=== PATIENT | female | born 1945 | race Hispanic/Latino ===

== ENCOUNTER 2019-03-29 06:12 | Observation (INO) | payer MEDICARE ==
[2019-03-26 10:57] LABS: ALANINE AMINOTRANSFERASE 14 IU/L (0-55); ALBUMIN 3.8 g/dL (3.5-5.0); ALBUMIN/GLOBULIN RATIO 1.2 (0.8-2.0); ALKALINE PHOSPHATASE 58 IU/L (40-150); ANION GAP 12.2 mmol/L (8-16); BLOOD UREA NITROGEN 11 mg/dL (7-26); BUN/CREATININE RATIO 16 (6-25); CALCIUM 9.4 mg/dL (8.4-10.2); CARBON DIOXIDE 27 mmol/L (22-29); CHLORIDE 106 mmol/L (98-107); EST GLOMERULAR FILTRATION RATE > 60 ML/MIN (60-); GLUCOSE 127 mg/dL (74-118); POTASSIUM 4.2 mmol/L (3.5-5.1); SODIUM 141 mmol/L (136-145)
[2019-03-26 11:32] LABS: BASOPHILS % 0.5 % (0.0-1.0); EOSINOPHILS # (AUTO) 0.2 (0.0-0.4); EOSINOPHILS % 3.4 % (0.0-6.0); HEMATOCRIT 33.4 % (34.2-44.1); LYMPHOCYTES # (AUTO) 1.9 (1.0-3.2); LYMPHOCYTES % 28.8 % (18.0-39.1); MEAN CORPUSCULAR HEMOGLOBIN 29.1 pg (28-32); MEAN CORPUSCULAR HGB CONC 32.9 g/dL (31-35); MEAN CORPUSCULAR VOLUME 88.4 fL (81-99); MONOCYTES # (AUTO) 0.4 (0.2-0.8); MONOCYTES % 6.4 % (4.4-11.3); NEUTROPHILS % 60.7 % (38.7-80.0); PLATELET COUNT 155 x10e3/uL (140-360); RED BLOOD COUNT 3.78 x10e6/uL (3.6-5.1); RED CELL DISTRIBUTION WIDTH 13.2 % (11.7-14.4)
--- NOTE | 2019-03-26 12:16 | Diagnostic Imaging Report ---
EXAMINATION: PA and lateral views of the chest. COMPARISON: None CLINICAL HISTORY: Preoperative evaluation, breast mass DISCUSSION: Lines/tubes: None. Lungs: The lungs are well inflated and clear. No pneumonia or pulmonary edema. Pleura: No pleural effusion or pneumothorax. Heart and mediastinum: The cardiomediastinal silhouette is normal. Bones and soft tissues: No acute bony abnormalities. IMPRESSION: No acute cardiopulmonary abnormalities. Signed by: Dr. Memo Lanier M.D. on 03/26/2019 12:12 PM
[~2019-03-29] VITALS: Ht 147.3 cm; Wt 60.3 kg
[~2019-03-29 06:12] MED LIST: ASPIR 8181 MG PO; ATORVASTATIN CA20 MG PO; GLIPIZIDE5 MG PO; INSUL; INSULIN SC; LISINOPRIL2.5 MG PO; METFORMIN HCL500 MG PO
--- OUTSIDE RECORDS SUMMARY | 2019-03-29 06:21 | XMS REPORT | Clinical Summary ---
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 Active nitroglycerin (NITROSTAT) Place 1 100 tablet 1 0.4 MG SL tablet tablet (0.4 6 mg total) under the tongue every 5 (five) minutes as needed (as needed). Active clopidogrel (PLAVIX) 75 Take 1 tablet 90 tablet 3 mg tablet (75 mg total) 6 by mouth daily. Active atorvastatin (LIPITOR) 20 Take 1 0 MG tablet tablet(s) every day by oral route. Active insulin NPH and regular Inject by 0 human (NovoLIN 70/30) 100 subcutaneous unit/mL (70-30) injection route. 15 units with breakfast and 10 units with dinner Active metFORMIN (GLUCOPHAGE) TAKE ONE 0 1,000 mg tablet TABLET BY MOUTH TWICE DAILY Active metoprolol tartrate Take 1 0 (LOPRESSOR) 25 mg tablet tablet(s) twice a day by oral route. Active metoprolol tartrate Take 1 0 (LOPRESSOR) 50 mg tablet tablet(s) twice a day by oral route for 90 days. Active mometasone (ELOCON) 0.1 % mometasone 0 cream 0.1 % topical cream Active simvastatin (ZOCOR) 20 MG simvastatin 0 tablet 20 mg tablet Active traMADol (ULTRAM) 50 mg tramadol 50 0 tablet mg tablet Active lisinopril Take 1 0 (PRINIVIL,ZESTRIL) 5 mg tablet(s) tablet every day by oral route for 90 days. Active atorvastatin (LIPITOR) 40 TAKE 1 TABLET 1 08/27/201 MG tablet BY MOUTH 6 DAILY FOR HIGH CHOLESTEROL Active aspirin (ECOTRIN) 81 MG Take 81 mg by 0 enteric coated tablet mouth daily. Active Problems Problem Noted Date Diabetes mellitus 10/06/2016 HLD (hyperlipidemia) 10/06/2016 Adrenal mass 08/24/2016 Hypertension 08/24/2016 Atherosclerosis of coronary artery 08/24/2016 Family History Medical History Relation Name Comments Diabetes Brother Diabetes Mother Diabetes Sister Relation Name Status Comments Brother Mother Sister Social History Date Tobacco Use Types Packs/Day Years Used Quit: 1998 Former Smoker Smokeless Tobacco: Never Used Alcohol Use Drinks/Week oz/Week Comments No Sex Assigned at Date Recorded Not on file Industry Job Start Date Occupation Not on file Not on file Not on file Travel End Travel History Travel Start No recent travel history available. Last Filed Vital Signs Not on file Plan of Treatment Health Maintenance Due Date Last Done Comments DIABETIC RETINAL EYE EXAM 1947 DIABETIC FOOT EXAM 1957 URINE MICROALBUMIN 1957 COLONOSCOPY SCREENING 1997 SHINGLES VACCINES (#1) 1997 65+ PNEUMOCOCCAL VACCINE 2012 (1 of 2 - PCV13) BREAST CANCER SCREENING 11/10/2016 11/10/2014 INFLUENZA VACCINE 05/10/2019 Results Not on fileafter 03/28/2018 Insurance Type Payer Benefit Subscriber ID Effective Phone Address Plan / Dates Group Medicare MEDICARE MEDICARE xxxxxxxxxx 2012-P NARINDER, PART A AND resent [place] B Commercial COMMERCIAL MISC MISC xxxxxxxxxx 2016-P COMMERCIAL resent Advance Directives Patient has advance care planning documents on file. For more information, suha jeffrey contact: Narinder Espinoza [address] [place] [address]
--- OUTSIDE RECORDS SUMMARY | 2019-03-29 06:22 | XMS REPORT | Summary of Care ---
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) S/P PTCA Active (percutaneous transluminal coronary angioplasty)(Confirm ed) Type 2 diabetes Active mellitus with hyperglycemia(Confir med) Right adrenal Resolved mass(Confirmed) Medicare annual Active wellness visit, subsequent(Confirmed ) Microalbuminuria(Con Active firmed) Mixed Active hyperlipidemia(Confi rmed) Numbness of right Active thumb(Confirmed) Osteoporosis(Confirm Active ed) Pain of right Active thumb(Confirmed) Screening for Active diabetic retinopathy(Confirme d) 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 Originally documented as NKA. Medications glipiZIDE 5 mg oral tablet =1 tab, PO, BID-Meals, # 180 ea, Pharmacy: [facility] Start Date: 11/26/18 Status: Ordered Results No data available for this section Immunizations Given and Recorded Vaccine Date Status Refusal Reason pneumococcal 23-valent vaccine1 06/15/12 Given 1Result Comment: pneumovax. Migrated from OBS ; Data migrated from [employer] on 11/11/2015. Procedures Procedure Date Related Diagnosis Body Site Status PTCA - Percutaneous transluminal coronary 2014 Completed angioplasty Screening mammography 2014 Completed Pneumococcal vaccination1 06/15/12 Completed Cholecystectomy 1967 Completed 1Pneumovax Social History Social History Type Response Substance Abuse Use: None. Exercise Exercise type: none. Employment/School Status: Retired. Alcohol Past Smoking Status Former smoker; Exposure to Tobacco Smoke None; Cigarette Smoking Last 365 Days No; Reg Smoking Cessation Counseling No entered on: 06/19/18 Assessment and Plan No data available for this section
--- OUTSIDE RECORDS SUMMARY | 2019-03-29 06:22 | XMS REPORT | Summary of Care ---
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) S/P PTCA Active (percutaneous transluminal coronary angioplasty)(Confirm ed) Type 2 diabetes Active mellitus with hyperglycemia(Confir med) Right adrenal Active mass(Confirmed) Microalbuminuria(Con Active firmed) Mixed Active hyperlipidemia(Confi rmed) Numbness of right Active thumb(Confirmed) Osteoporosis(Confirm Active ed) Pain of right Active thumb(Confirmed) Screening for colon Active cancer(Confirmed) Screening for Active diabetic retinopathy(Confirme d) 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 Originally documented as NKA. Medications metFORMIN 1000 mg oral tablet 1,000 mg=1 tab, PO, BID, # 180 tab, 1 Refill(s) Start Date: 09/12/17 Stop Date: 03/11/18 Status: Ordered NovoLIN 70/30 PenFill subcutaneous injection 20 units with breakfast and 15 units with dinner, SUB-Q, BID, # 10 mL, 5 Refill( s) Start Date: 09/12/17 Status: Ordered Results No data available for this section Immunizations Given and Recorded Vaccine Date Status Refusal Reason pneumococcal 23-valent vaccine1 06/15/12 Given 1Result Comment: pneumovax. Migrated from OBS ; Data migrated from [employer] on 11/11/2015. Procedures Procedure Date Related Diagnosis Body Site PTCA - Percutaneous transluminal coronary 2014 angioplasty Screening mammography 2014 Cholecystectomy 1967 Social History Social History Type Response Substance Abuse Use: None. Exercise Exercise type: none. Employment/School Status: Retired. Alcohol Past Smoking Status Former smoker; Type: Cigarettes; Exposure to Tobacco Smoke None; Cigarette Smoking Last 365 Days No; Reg Smoking Cessation Counseling No; Stopped at age: 22; Assessment and Plan No data available for this section
--- OUTSIDE RECORDS SUMMARY | 2019-03-29 06:22 | XMS REPORT | Summary of Care ---
Author Author [facility] Organization [facility] Address Unknown Phone Unavailable Care Team Providers Care Teaching Aide Name Role Phone Anita Cordoba PCP Encounter HQ Encntr_nati(FIN) [id number] Date(s): 03/12/19 - 03/12/19 [facility] [address] [place] [address] [address] [place] [address]- Attending Physician: Anita Cordoba MD Vital Signs No data available for this section Problem List Condition Effective Dates Status Health Status Informant Coronary artery Active disease(Confirmed) Benign essential Active hypertension(Confirm ed) BMI Active 28.0-28.9,adult(Conf irmed) Screening for breast Active cancer(Confirmed) DM Active retinopathy(Confirme d) 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) Active 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(Confirmed) S/P PTCA Active (percutaneous transluminal coronary angioplasty)(Confirm ed) Type 2 diabetes Active mellitus with hyperglycemia(Confir med) 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) Right adrenal Resolved mass(Confirmed) Medicare annual Active wellness visit, subsequent(Confirmed ) Microalbuminuria(Con Active firmed) Mixed Active hyperlipidemia(Confi rmed) Numbness of right Active thumb(Confirmed) Osteoporosis(Confirm Active ed) Overweight(Confirmed Active ) Pain of right Active thumb(Confirmed) Screening for Active diabetic retinopathy(Confirme d) 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 Migrated from [employer] ; Data migrated from [employer] on 11/11/2015. Procedures Procedure Date Related Diagnosis Body Site Status Diabetic retinal eye exam1 02/19/19 Completed Biopsy of breast2 02/15/19 Completed Bone density scan3 01/02/19 Completed Screening mammography4 01/02/19 Completed Diabetic retinal eye exam5 12/04/18 Completed PTCA - Percutaneous transluminal coronary 2014 Completed angioplasty Pneumococcal vaccination6 06/15/12 Completed Cholecystectomy 1967 Completed 1Diabetic retinopathy with macular edema 2Diagnosis Right breast, stereotactic core biopsy 9:00 aspect - DUCTAL CARCINOMA IN SITU, NUCLEAR GRADE 2, CRIBRIFORM AND MICROPAPILLAR Y TYPES WITH COMEDONECROSIS AND CALCIFICATIONS 3IMPRESSION: OSTEOPENIA Patient is at medium risk for fracture. 4IMPRESSION: INCOMPLETE: NEEDS ADDITIONAL IMAGING EVALUATION RECOMMENDATION:The linear heterogeneous calcifications in the right breast are i ndeterminate. Magnification views are recommended. 5Right Eye Findings: Negative for Diabetic Retinopathy. Other: Suspected Cataract Left Eye Findings: Diabetic Retinopathy: Mild Macular Edema: Mild Other: Suspected Cataract 6Pneumovax Social History Social History Type Response Substance Abuse Use: None. Exercise Exercise type: none. Employment/School Status: Retired. Alcohol Past Smoking Status Former smoker; Type: Cigarettes; Exposure to Tobacco Smoke None; Cigarette Smoking Last 365 Days No; Reg Smoking Cessation Counseling No; Stopped at age: 22; entered on: 02/20/19 Assessment and Plan No data available for this section
--- OUTSIDE RECORDS SUMMARY | 2019-03-29 06:22 | XMS REPORT | Summary of Care ---
Author Author [facility] Organization [facility] Address Unknown Phone Unavailable Encounter HQ Arie(FIN) [id number] Date(s): 06/19/18 - 06/19/18 [facility] [address] [place] [address]- Discharge Disposition: Home or Self Care Attending Physician: Anita Cordoba MD Vital Signs Most recent to 1 2 oldest [Reference Range]: Height 147.32 cm (06/19/18 2:39 PM) Temperature Oral 97.8 DegF [96.4-99.1 DegF] (06/19/18 2:39 PM) Blood Pressure 140/72 mmHg 173/85 mmHg [90-140/60-90 mmHg] (06/19/18 3:01 PM) *HI* (06/19/18 2:39 PM) Peripheral Pulse 87 bpm Rate [60-100 bpm] (06/19/18 2:39 PM) Weight 62.5 kg (06/19/18 2:39 PM) Body Mass Index 28.8 m2 (06/19/18 2:39 PM) Problem List Condition Effective Dates Status Health Status Informant Coronary artery Active disease(Confirmed) Benign essential Active hypertension(Confirm ed) BMI Active 28.0-28.9,adult(Conf irmed) Screening for breast Active cancer(Confirmed) DM Active retinopathy(Confirme d) 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 Originally documented as NKA. Medications atorvastatin 20 mg oral tablet 20 mg=1 tab, PO, Bedtime, X 90 day, # 90 tab, 1 Refill(s) Start Date: 06/19/18 Stop Date: 11/29/18 Status: Completed glipiZIDE 5 mg oral tablet 5 mg=1 tab, PO, BID-Before Meals, # 180 tab, 1 Refill(s) Start Date: 06/19/18 Stop Date: 11/26/18 Status: Completed lisinopril 2.5 mg oral tablet 2.5 mg=1 tab, PO, Daily, # 90 tab, 1 Refill(s) Start Date: 06/19/18 Stop Date: 09/12/18 Status: Completed metFORMIN 1000 mg oral tablet 1,000 mg=1 tab, PO, BID, X 90 day, # 180 tab, 1 Refill(s) Start Date: 06/19/18 Stop Date: 11/29/18 Status: Completed NovoLIN 70/30 20 units with breakfast and 15 units with dinner, SUB-Q, BID-Meals, # 3 vial, 3 Refill(s) Start Date: 06/19/18 Stop Date: 11/29/18 Status: Completed Results No data available for this section Immunizations Given and Recorded Vaccine Date Status Refusal Reason pneumococcal 23-valent vaccine1 06/15/12 Given 1Result Comment: pneumovax. Migrated from [facility] ; Data migrated from Search to Phone on 11/11/2015. Procedures Procedure Date Related Diagnosis Body Site Status Bone density scan1 01/02/19 Completed Screening mammography2 01/02/19 Completed Diabetic retinal eye exam3 12/04/18 Completed PTCA - Percutaneous transluminal coronary 2014 Completed angioplasty Pneumococcal vaccination4 06/15/12 Completed Cholecystectomy 1967 Completed 1IMPRESSION: OSTEOPENIA Patient is at medium risk for fracture. 2IMPRESSION: INCOMPLETE: NEEDS ADDITIONAL IMAGING EVALUATION RECOMMENDATION:The linear heterogeneous calcifications in the right breast are i ndeterminate. Magnification views are recommended. 3Right Eye Findings: Negative for Diabetic Retinopathy. Other: Suspected Cataract Left Eye Findings: Diabetic Retinopathy: Mild Macular Edema: Mild Other: Suspected Cataract 4Pneumovax Social History Social History Type Response Substance Abuse Use: None. Exercise Exercise type: none. Employment/School Status: Retired. Alcohol Past Smoking Status Former smoker; Type: Cigarettes; Exposure to Tobacco Smoke None; Cigarette Smoking Last 365 Days No; Reg Smoking Cessation Counseling No; Stopped at age: 22; entered on: 12/04/18 Assessment and Plan No data available for this section
--- OUTSIDE RECORDS SUMMARY | 2019-03-29 06:22 | XMS REPORT | Summary of Care ---
Author Author [facility] Organization [facility] Address Unknown Phone Unavailable Encounter HQ Danelle_nati(FIN) [id number] Date(s): 01/03/19 - 01/04/19 [facility] [address] [place] [address]- [phone] Vital Signs No data available for this section Problem List Condition Effective Dates Status Health Status Informant Coronary artery Active disease(Confirmed) Benign essential Active hypertension(Confirm ed) BMI Active 28.0-28.9,adult(Conf irmed) Screening for breast Active cancer(Confirmed) DM Active retinopathy(Confirme d) 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 Originally documented as NKA. Medications No data available for this section Results No data available for this section Immunizations Given and Recorded Vaccine Date Status Refusal Reason pneumococcal 23-valent vaccine1 06/15/12 Given 1Result Comment: pneumovax. Migrated from OBS ; Data migrated from [employer] on 11/11/2015. Procedures Procedure Date Related Diagnosis Body Site Status Bone density scan1 01/02/19 Completed Screening mammography2 01/02/19 Completed Diabetic retinal eye exam3 12/04/18 Completed PTCA - Percutaneous transluminal coronary 2015 Completed angioplasty Pneumococcal vaccination4 06/15/12 Completed Cholecystectomy [...]
--- OUTSIDE RECORDS SUMMARY | 2019-03-29 06:22 | XMS REPORT | Summary of Care ---
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 Originally documented as NKA. Medications NovoLIN 70/30 20 units with breakfast and 15 units with dinner, SUB-Q, BID-Meals, # 3 vial, 3 Refill(s) Start Date: 09/23/17 Status: Ordered Results No data available for this section Immunizations Given and Recorded Vaccine Date Status Refusal Reason pneumococcal 23-valent vaccine1 06/15/12 Given 1Result Comment: pneumovax. Migrated from OBS ; Data migrated from [employer] on 11/11/2015. Procedures Procedure Date Related Diagnosis Body Site PTCA - Percutaneous transluminal coronary 2015 angioplasty Screening mammography 2015 Cholecystectomy 1967 Social History Social History Type Response Substance Abuse Use: None. Exercise Exercise type: none. Employment/School Status: Retired. Alcohol Past Smoking Status Former smoker; Type: Cigarettes; Exposure to Tobacco Smoke None; Cigarette Smoking Last 365 Days No; Reg Smoking Cessation Counseling No; Stopped at age: 22; Assessment and Plan No data available for this section
--- OUTSIDE RECORDS SUMMARY | 2019-03-29 06:22 | XMS REPORT | Summary of Care ---
Author Author [facility] Organization [facility] Address Unknown Phone Unavailable Encounter COURTNEY Sargent(AYO) [id number] Date(s): 01/02/19 - 01/02/19 [facility] [address] [place] [phone] Discharge Disposition: Home or Self Care Attending Physician: Anita Cordoba MD Referring Physician: Anita Cordoba MD Vital Signs No data available for this section Problem List Condition Effective Dates Status Health Status Informant Coronary artery Active disease(Confirmed) Benign essential Active hypertension(Confirm ed) BMI Active 28.0-28.9,adult(Conf irmed) Screening for breast Active cancer(Confirmed) DM Active retinopathy(Confirme d) 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 Originally documented as NKA. Medications No data available for this section Results No data available for this section Immunizations Given and Recorded Vaccine Date Status Refusal Reason pneumococcal 23-valent vaccine1 06/15/12 Given 1Result Comment: pneumovax. Migrated from OBS ; Data migrated from [employer] on 11/11/2015. Procedures Procedure Date Related Diagnosis [...]
--- OUTSIDE RECORDS SUMMARY | 2019-03-29 06:22 | XMS REPORT | Continuity of Care Document ---
Author Author [facility] Interface Address Unknown Phone Unavailable Problems Problem Status Onset Date Classification Date Reported Comments Source ABNORMAL MAMMOGRAM OF RIGHT BREAST Active 01/30/2019 [facility] Z12.13 - ENCNTR SCREEN FOR MALIGNANT NE Active 12/08/2018 [facility] [place] Z12.31 - ENCNTR SCREEN MAMMOGRAM FOR MA Active 03/15/2017 [facility] [place] Coronary artery disease Active Problem 03/28/2019 [facility], [facility] [place],[facility] Benign essential hypertension Active Problem 03/28/2019 [facility], [facility] [place] Screening for breast cancer Active Problem 03/28/2019 [facility], [facility] [place] prison 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(<span ID="[id number]</span>) Active Problem 03/28/2019 [facility], [facility] [place],[facility] S/P PTCA (<span ID="[id number]">Confirmed</span>) Active Problem 03/28/2019 [facility], [facility] [place] Type 2 diabetes mellitus with hyperglycemia Active Problem 03/28/2019 [facility], [facility] [place] Right adrenal mass Resolved Problem 03/28/2019 [facility], [facility] [place] Medicare annual wellness visit, subsequent Active Problem 03/28/2019 [facility], [facility] [place] Microalbuminuria Active Problem 03/28/2019 [facility], [facility] [place] Mixed hyperlipidemia Active Problem 03/28/2019 [facility], [facility] [place], [facility] Numbness of right thumb Active Problem 03/28/2019 [facility], [facility] [place] Osteoporosis Active Problem 03/28/2019 [facility], [facility] [place], [place] Pain of right thumb Active Problem 03/28/2019 [facility], [facility] [place] Screening for colon cancer Active Problem 02/15/2018 Medical [facility] Screening for diabetic retinopathy Active Problem 03/28/2019 [facility] [place] Type 2 diabetes mellitus with microalbuminuria Active Problem 03/28/2019 [facility] BMI 28.0-28.9,adult Active Problem 03/28/2019 [facility], [facility] DM retinopathy Active Problem 03/28/2019 [facility] Overweight Active Problem 03/28/2019 Medical [facility] Ductal carcinoma in situ of right breast Active Problem 03/28/2019 Medical [facility] Abnormal mammogram of right breast Active Problem 02/17/2019 Medical [facility] Medications Medication Details Route Status Patient Instructions Ordering Provider Order Date Source Metformin hydrochloride 1000 MG Oral Tablet 1,000 mg=1 tab, PO, BID, # 180 tab, 1 Refill(s), Pharmacy: [facility] Active 11/29/2018 [facility] Group lisinopril 2.5 mg oral tablet =1 tab, PO, Daily, # 90 ea, 1 Refill(s), Pharmacy: [facility] Active 11/29/2018 Medical Group NPH Insulin, Human 70 UNT/ML / Regular Insulin, Human 30 UNT/ML Injectable Suspension [Novolin 70/30] 20 units with breakfast and 15 units with dinner, SUB-Q, BID-Meals, # 3 vial, 3 Refill(s), Pharmacy: [facility] Active 11/29/2018 [facility] Group atorvastatin 20 mg oral tablet 20 mg=1 tab, PO, Bedtime, # 90 tab, 1 Refill(s), Pharmacy: [facility] Active 11/29/2018 Medical Group Glipizide 5 MG Oral Tablet =1 tab, PO, BID-Meals, # 180 ea, Pharmacy: [facility] Active 11/26/2018 Medical Group Metformin hydrochloride 1000 MG Oral Tablet 1,000 mg=1 tab, PO, BID, X 90 day, # 180 tab, 1 Refill(s) No Longer Active 06/19/2018 Medical Group lisinopril 2.5 mg oral tablet 2.5 mg=1 tab, PO, Daily, # 90 tab, 1 Refill(s) No Longer Active 06/19/2018 [facility] NPH Insulin, Human 70 UNT/ML / Regular Insulin, Human 30 UNT/ML Injectable Suspension [Novolin 70/30] 20 units with breakfast and 15 units with dinner, SUB-Q, BID-Meals, # 3 vial, 3 Refill(s) No Longer Active 06/19/2018 [facility] Glipizide 5 MG Oral Tablet 5 mg=1 tab, PO, BID-Before Meals, # 180 tab, 1 Refill(s) No Longer Active 06/19/2018 [facility] atorvastatin 20 mg oral tablet 20 mg=1 tab, PO, Bedtime, X 90 day, # 90 tab, 1 Refill(s) No Longer Active 06/19/2018 [facility] lisinopril 2.5 mg oral tablet 2.5 mg=1 tab, PO, Daily, # 90 tab, 1 Refill(s), given to patient Active 02/06/2018 [facility] Glipizide 5 MG Oral Tablet 5 mg=1 tab, PO, BID-Before Meals, # 180 tab, 1 Refill(s), given to patient Active 02/06/2018 Medical Group atorvastatin 20 mg oral tablet 20 mg=1 tab, PO, Bedtime, # 90 tab, 1 Refill(s), given to patient Active 02/06/2018 [facility] Metformin hydrochloride 1000 MG Oral Tablet 1,000 mg=1 tab, PO, BID, # 180 tab, 1 Refill(s), given to patient Active 02/06/2018 Medical Group Metformin hydrochloride 1000 MG Oral Tablet 1,000 mg=1 tab, PO, BID, # 180 tab, 1 Refill(s) No Longer Active 12/15/2017 [facility] lisinopril 2.5 mg oral tablet 2.5 mg=1 tab, PO, Daily, # 90 tab, 1 Refill(s) Active 10/27/2017 [facility] Glipizide 5 MG Oral Tablet 5 mg=1 tab, PO, BID-Before Meals, # 180 tab, 1 Refill(s) Active 10/27/2017 Medical Group NPH Insulin, Human 70 UNT/ML / Regular Insulin, Human 30 UNT/ML Injectable Suspension [Novolin 70/30] 20 units with breakfast and 15 units with dinner, SUB-Q, BID-Meals, # 3 vial, 3 Refill(s) Active 10/24/2017 [facility] atorvastatin 20 mg oral tablet 20 mg=1 tab, PO, Bedtime, # 90 tab, 1 Refill(s) Active 10/24/2017 [facility] NPH Insulin, Human 70 UNT/ML / Regular Insulin, Human 30 UNT/ML Injectable Suspension [Novolin 70/30] 20 units with breakfast and 15 units with dinner, SUB-Q, BID-Meals, # 3 vial, 3 Refill(s) Active 09/23/2017 [facility] NovoLIN 70/30 PenFill subcutaneous injection 20 units with breakfast and 15 units with dinner, SUB-Q, BID, # 10 mL, 5 Refill(s) Active 09/12/2017 [facility] Metformin hydrochloride 1000 MG Oral Tablet 1,000 mg=1 tab, PO, BID, # 180 tab, 1 Refill(s) Active 09/12/2017 [facility] Metformin hydrochloride 1000 MG Oral Tablet 1,000 mg=1 tab, PO, BID, X 90 day, # 180 tab, 1 Refill(s), Pharmacy: [id number] No Longer Active 09/12/2017 [facility] Allergies, Adverse Reactions, Alerts Substance Category Reaction Severity Reaction type Status Date Reported Comments Source No Known Medication Allergies Assertion Drug allergy [facility] Immunizations Immunization Date Given Site Status Last Updated Comments Source pneumococcal 23-valent vaccine<sup>1</sup> 06/15/2012 completed GE Result Comment: pneumovax. Migrated from OBS ; Data migrated from [employer] on 11/11/2015. [facility] Results Order Name Results Value Reference Range Date Interpretation Comments Source Stereo Breast BX Uni /Clip Primary SD MA Stereo Breast BX Uni /Clip Primary SD MA STEREOTACTIC GUIDED BIOPSY RIGHT BREAST WITH MARKING DEVICE INSERTED AND POST DIGITAL MAMMOGRAPHIC IMAGIN02/15/2019 CLINICAL: Indeterminate right breast calcifications. PATIENT CONSENT: Oral and written informed consent was obtained. Risks, benefits, and alternatives were discussed with the patient. Risks include but are not limited to pain, infection, bleeding, incomplete procedure, repeat procedure, pneumothorax, damage to surrounding tissues, and allergic reaction. The patient understands the plan and wishes to proceed. A time out was performed immediately prior to the procedure to confirm the patient's identity (name/date of ) and correct procedure site. Correlation is made to exams dated: 01/11/2019 mammogram, 01/02/2019 mammogram - [facility], 11/18/2014 mammogram, 01/17/2013 mammogram - [facility], 07/09/2011 mammogram - [facility], and 03/05/2009 mammogram - [facility]. A stereotactic guided biopsy was performed for the concerning area of grouped calcifications located in the right breast at 9 o'clock posterior depth. This was described on the previous mammography report. The skin was prepped in the usual manner. 10 ccs of 2% lidocaine was administered during the procedure. A skin silvia was made in the breast. The abnormality was approached from the lateral aspect using an upright digital mammography unit. A 9 gauge biopsy needle was placed adjacent to the abnormality under computer guidance and confirmatory stereotactic mammography images were obtained to document needle placement. Once the needle was documented to be in the correct location, multiple cores were obtained using an automated biopsy gun. A [employer] ramon shaped biopsy clip was inserted into the biopsy cavity. A skin adhesive and a sterile dressing were applied to the access site. Post procedure digital mammographic imaging interpreted on a dedicated mammography workstation demonstr ates the clip at the targeted area and partial removal of the calcifications. The specimens were sent to the laboratory for pathological analysis. IMPRESSION: STEREOTACTIC GUIDED BIOPSY MALIGNANT Stereotactic guided biopsy of the area of grouped calcifications in the right breast at 9 o'clock posterior depth was successful with no apparent post procedure complications. Pathology indicates malignant results - "DUCTAL CARCINOMA IN SITU, NUCLEAR GRADE 2, CRIBRIFORM AND MICROPAPILLARY TYPES WITH COMEDONECROSIS AND CALCIFICATIONS". Pathology results are concordant with imaging findings. A surgical consultation, a surgical excision, a radiation oncology consultation, and a medical oncology consultation are recommended. Please note, the calcifications are loosely grouped and measure approximately 4-5 cm. A phone call was made to the physician of the above results at 1340 hrs 02/16/19. This exam was interpreted at [id number] for [facility]. Darby nevarez/:02/16/2019 13:43:40 Electronics Engineering Technologist(s): Dianne Bone, [facility] 02/15/2019 - - Read by: Darby Smith MD Dictated Date/time: 02/16/19 13:43 Electronically Signed by: Darby Smith MD 02/16/19 13:43 FINAL REPORT [facility] Breast Mammo Diag UNI incl CAD RI Breast Mammo Diag UNI incl CAD MA UNILATERAL RIGHT DIGITAL DIAGNOSTIC MAMMOGRAM WITH CAD: 01/11/2019 CLINICAL: R92.8/ Other Abnormal And Inconclusive Findings On Diagnostic Imaging Of Breast. Current study was evaluated with a Computer Aided Detection (CAD) system. COMPARISON:Comparison is made to exams dated: 01/02/2019 mammogram - [facility] and 11/18/2014 mammogram - [facility]. TECHNIQUE: Mammographic views were obtained using digital acquisition. Current study was also evaluated with a Computer Aided Detection (CAD) system. FINDINGS: There are scattered fibroglandular densities in right breast. There are 4.4 cm x 3.9 cm x 3.1 cm segmental heterogeneous calcifications in the right breast at 11 o'clock posterior depth 4.5 cm from the nipple. No other significant masses or calcifications are seen in the breast. IMPRESSION: SUSPICIOUS OF MALIGNANCY RECOMMENDATION:The 4.4 cm x 3.9 cm x 3.1 cm segmental heterogeneous calcifications in the right breast are at an intermediate suspicion for malignancy. A stereotactic biopsy is recommended. This exam was interpreted at [id number] for IGNACIO Justice 15. Professional services are provided by the [facility] M[facility] Division of Diagnostic Imaging. Best Tello M.D. cm/penrad:01/11/2019 14:16:53 Electronics Engineering Technologist(s): RT Roman(R)(M), [facility] letter sent: BI-RADS 4/5 Mammogram BI-RADS: 4b Suspicious abnormality - intermediate suspicion of malignancy 01/11/2019 - - Read by: Christophe Arana MD Dictated Date/time: 01/11/19 14:16 Electronically Signed by: Christophe Arana MD 01/11/19 14:16 FINAL REPORT [facility] Breast Mammo Scrn KESHAWN incl CAD MA Breast Mammo Scrn KESHAWN incl CAD MA BILATERAL DIGITAL SCREENING MAMMOGRAM WITH CAD: 01/02/2019 Current study was evaluated with a Computer Aided Detection (CAD) system. COMPARISON:Comparison is made to exams dated: 11/18/2014 mammogram, 01/17/2013 mammogram - [facility], 07/09/2011 mammogram - [facility], and 03/05/2009 mammogram - [facility]. TECHNIQUE: Mammographic views were obtained using digital acquisition. Current study was also evaluated with a Computer Aided Detection (CAD) system. FINDINGS: There are scattered fibroglandular densities in both breasts. There are linear heterogeneous calcifications in the right breast at 11 o'clock posterior depth 7.5 cm from the nipple. No other significant masses, calcifications, or other findings are seen in either breast. IMPRESSION: INCOMPLETE: NEEDS ADDITIONAL IMAGING EVALUATION RECOMMENDATION:The linear heterogeneous calcifications in the right breast are indeterminate. Magnification views are recommended. This exam was interpreted at [id number] for IGNACIO Rasmussen 15. Professional services are provided by the [facility] Division of Diagnostic Imaging. Best Tello M.D. cm/penrad:01/02/2019 11:03:20 Electronics Engineering Technologist(s): RT Jenae(R)(M), [facility] letter sent: BI-RADS 0 Mammogram BI-RADS: 0 Indeterminate 01/02/2019 - - Read by: Christophe Arana MD Dictated Date/time: 01/02/19 11:03 Electronically Signed by: Christophe Arana MD 01/02/19 11:03 FINAL REPORT [facility] Bone Density [employer] MA Bone Density [employer] MA BONE DENSITY ASSESSMENT: 01/02/2019 CLINICAL DATA: Post menopausal. Age-Related Osteoporosis Without Current Pathological Fracture/M81.0 FINDINGS: Bone density evaluation was performed 01/02/2019 on the right femur neck using a Hologic unit. The BMD average for the exam is 0.750 g/cm2. The T-score is -0.90 and the Z-score is 0.80. This matches the World Health Organization's criteria for normal bone density and places the patient within normal limits of fracture risk. An additional bone density evaluation was performed 01/02/2019 on the left femur neck using a Hologic unit. The BMD average for the exam is 0.714 g/cm2. The T- score is -1.20 and the Z-score is 0.50. This matches the World Health Organization's criteria for osteopenia and places the patient at a medium risk for fracture. An additional bone density evaluation was performed 01/02/2019 on the right hip using a Hologic unit. The BMD average for the exam is 0.938 g/cm2. The Z-score is 1.40. This matches the World Health Organization's criteria for normal bone density and places the patient within normal limits of fracture risk. An additional bone density evaluation was performed 01/02/2019 on the left hip using a Hologic unit. The BMD average for the exam is 0.976 g/cm2. The T-score is 0.30 and the Z-score is 1.70. This matches the World Health Organization's criteria for normal bone density and places the patient within normal limits of fracture risk. An additional bone density evaluation was performed 01/02/2019 on the AP L3-L4 region of spine using a Hologic unit. The BMD average for the exam is 1.260 g/cm2. The T-score is 1.40 and the Z-score is 3.80. This matches the World Health Organization's criteria for normal bone density and places the patient within normal limits of fracture risk. FRAX 10 year probability of major osteoporotic fracture is 5.1% and hip fracture is 0.6%. IMPRESSION: OSTEOPENIA Patient is at medium risk for fracture. This exam was interpreted at [id number] for IGNACIO Rasmussen 15. Best Tello M.D. cm/gabriele:01/02/2019 11:01:03 Electronics Engineering Technologist(s): Nemo SNOW(Tabby)(M), [facility] 01/02/2019 - - Read by: Christophe Arana MD Dictated Date/time: 01/02/19 11:01 Electronically Signed by: Christophe Arana MD 01/02/19 11:01 FINAL REPORT [facility] Vital Signs Vital Sign Value Date Comments Source Heart Rate 82 02/20/2019 Medical Group Respitory Rate 16 02/20/2019 Medical Group Temperature Oral (F) 98.7 F 02/20/2019 [facility] Group Systolic (mm Hg) 173 02/20/2019 Medical Group Diastolic (mm Hg) 86 02/20/2019 Medical Group BMI Calculated 28.98 02/20/2019 Medical Group Height 147.32 cm 02/20/2019 Medical Group Weight 62.898 02/20/2019 Medical Group Height 147.32 cm 12/04/2018 [facility] Group Weight 61.818 12/04/2018 Medical Group BMI Calculated 28.48 12/04/2018 Medical Group Heart Rate 92 12/04/2018 Medical Group Respitory Rate 16 12/04/2018 [facility] Temperature Oral (F) 98.1 F 12/04/2018 [facility] Systolic (mm Hg) 153 12/04/2018 [facility] Group Diastolic (mm Hg) 83 12/04/2018 [facility] Systolic (mm Hg) 140 06/19/2018 [facility] Group Diastolic (mm Hg) 72 06/19/2018 Medical Group BMI Calculated 28.8 06/19/2018 Medical Group Weight 62.5 06/19/2018 Medical Group Height 147.32 cm 06/19/2018 Medical Group Heart Rate 87 06/19/2018 [facility] Group Temperature Oral (F) 97.8 F 06/19/2018 [facility] Group Systolic (mm Hg) 173 06/19/2018 Medical Group Diastolic (mm Hg) 85 06/19/2018 Medical Group Weight 63.352 02/06/2018 Medical Group BMI Calculated 29.19 02/06/2018 [facility] Group Systolic (mm Hg) 143 02/06/2018 [facility] Group Diastolic (mm Hg) 71 02/06/2018 Medical Group Temperature Oral (F) 98.7 F 02/06/2018 Medical Group Heart Rate 87 02/06/2018 Medical Group Respitory Rate 16 02/06/2018 Medical Group Height 147.32 cm 02/06/2018 Medical Group Weight 63.182 10/24/2017 Medical Group Height 147.32 cm 10/24/2017 Medical Group BMI Calculated 29.11 10/24/2017 Medical Group Systolic (mm Hg) 161 10/24/2017 [facility] Group Diastolic (mm Hg) 87 10/24/2017 Medical Group Temperature Oral (F) 98.3 F 10/24/2017 Medical Group Respitory Rate 16 10/24/2017 Medical Group Heart Rate 93 10/24/2017 Medical Group Encounters Location Location Details Encounter Type Encounter Number Reason For Visit Attending Provider ADM Date DC Date Status Source [facility] Outpatient [facility] [id number] Bita Lockett 11/18/2014 11/19/2014 [facility] [place] Out[facility] [id number] BITA LOCKETT 02/21/2017 Active [facility] [id number] BITA GARCIAO 03/21/2017 [facility] [id number] BITA LOCKETT 05/30/2017 Active [facility] [id number] BITA LOCKETT 06/10/2017 Active [facility] [id number] BITA LOCKETT 06/20/2017 Active [facility] [id number] BIT[facility]OCKETT 07/04/2017 [facility] Phone Message [id number] 09/12/2017 09/13/2017 [facility] Phone Message [id number] 09/12/2017 09/14/2017 [facility] Phone Message [id number] 09/21/2017 09/23/2017 [facility] Outpatient [id number] BITA HAQUECEDO 10/17/2017 [facility] Ambulatory Pre-Reg [id number] Bita Haquecedo 10/17/2017 10/17/2017 [facility] Outpatient [id number] BITA HAQUECEDO 10/24/2017 Active [facility] Outpatient [id number] Bita Haquecedo 10/24/2017 10/25/2017 [facility] Phone Message [id number] 02/01/2018 02/03/2018 [facility] Outpatient [id number] BITA HAQUECEDO 02/06/2018 [facility] Outpatient [id number] Bita Haquecedo 02/06/2018 02/07/2018 [facility]patient [id number] BITA HAQUECEDO 06/19/2018 [facility] Outpatient [id number] Bita Haquecedo 06/19/2018 06/20/2018 [facility] Phone Message [id number] 11/26/2018 11/28/2018 [facility] Phone Message [id number] 11/27/2018 11/29/2018 [facility] Phone Message [id number] 11/29/2018 12/01/2018 [facility] Outpatient [id number] BITA LOCKETT 12/04/2018 Active [facility] Outpatient [id number] Bita Lockett 12/04/2018 12/05/2018 [facility] Primary [facility] Phone Message [id number] 12/05/2018 12/07/2018 [facility] [place] [facility] [id number] Bita Lockett 01/02/2019 01/03/2019 [facility] [place] [facility] Phone Message [id number] 01/04/2019 01/05/2019 [facility] [place] [facility] [id number] Bita Lockett 01/11/2019 01/12/2019 [facility] [place] [facility] Phone Message [id number] 01/11/2019 01/13/2019 [facility] Phone Message [id number] 01/16/2019 01/18/[address] [facility] Outpatient [id number] Bita Haquecedo 02/15/2019 02/16/2019 [facility] Phone Message [id number] 02/19/2019 02/20/2019 [facility] Outpatient [id number] Bita Lockett 02/20/2019 Active [facility] Outpatient [id number] Bita Haquecedo 02/20/2019 02/21/2019 [facility] Outpatient [id number] BITA LOCKETT 03/02/2019 Active [facility] Phone Message [id number] 03/07/2019 03/09/2019 [facility] Ambulatory Pre-Reg [id number] Bita Lockett 03/12/2019 03/12/2019 [facility] Phone Message [id number] 03/23/2019 03/25/2019 [facility] Outpatient [id number] Bita Lockett 03/26/2019 Active [facility] Ambulatory Pre-Reg [id number] Bita Lockett 03/26/2019 03/26/2019 [facility] Procedures Procedure Code Date Perfomer Comments Source Diabetic retinal eye exam<sup>1</sup> [id number] 02/19/2019 Diabetic retinopathy with macular edema [facility] Biopsy of breast<sup>2</sup> [id number] 02/15/2019 Diagnosis Right breast, stereotactic core biopsy 9:00 aspect - DUCTAL CARCINOMA IN SITU, NUCLEAR GRADE 2, CRIBRIFORM AND MICROPAPILLARY TYPES WITH COMEDONECROSIS AND CALCIFICATIONS [facility] Biopsy of breast<sup>1</sup> [id number] 02/15/2019 Diagnosis Right breast, stereotactic core biopsy 9:00 aspect - DUCTAL CARCINOMA IN SITU, NUCLEAR GRADE 2, CRIBRIFORM AND MICROPAPILLARY TYPES WITH COMEDONECROSIS AND CALCIFICATIONS [facility] Bone density scan<sup>3</sup> [id number] 01/02/2019 IMPRESSION: OSTEOPENIA Patient is at medium risk for fracture. [facility] Screening mammography<sup>4</sup> [id number] 01/02/2019 IMPRESSION: INCOMPLETE: NEEDS ADDITIONAL IMAGING EVALUATION RECOMMENDATION:The linear heterogeneous calcifications in the right breast are indeterminate. Magnification views are recommended. [facility] Bone density scan<sup>1</sup> [id number] 01/02/2019 IMPRESSION: OSTEOPENIA Patient is at medium risk for fracture. [facility] Screening mammography<sup>2</sup> [id number] 01/02/2019 IMPRESSION: INCOMPLETE: NEEDS ADDITIONAL IMAGING EVALUATION RECOMMENDATION:The linear heterogeneous calcifications in the right breast are indeterminate. Magnification views are recommended. [facility] Bone density scan<sup>1</sup> [id number] 01/02/2019 IMPRESSION: OSTEOPENIA Patient is at medium risk for fracture. [facility] Screening mammography<sup>2</sup> [id number] 01/02/2019 IMPRESSION: INCOMPLETE: NEEDS ADDITIONAL IMAGING EVALUATION RECOMMENDATION:The linear heterogeneous calcifications in the right breast are indeterminate. Magnification views are recommended. [facility] Bone density scan<sup>1</sup> [id number] 01/02/2019 IMPRESSION: OSTEOPENIA Patient is at medium risk for fracture. [facility] Screening mammography<sup>2</sup> [id number] 01/02/2019 IMPRESSION: INCOMPLETE: NEEDS ADDITIONAL IMAGING EVALUATION RECOMMENDATION:The linear heterogeneous calcifications in the right breast are indeterminate. Magnification views are recommended. [facility] Bone density scan<sup>2</sup> [id number] 01/02/2019 IMPRESSION: OSTEOPENIA Patient is at medium risk for fracture. [facility] Screening mammography<sup>3</sup> [id number] 01/02/2019 IMPRESSION: INCOMPLETE: NEEDS ADDITIONAL IMAGING EVALUATION RECOMMENDATION:The linear heterogeneous calcifications in the right breast are indeterminate. Magnification views are recommended. [facility] Diabetic retinal eye exam<sup>1</sup> [id number] 12/04/2018 Right Eye Findings: Negative for Diabetic Retinopathy. Other: Suspected Cataract Left Eye Findings: Diabetic Retinopathy: Mild Macular Edema: Mild Other: Suspected Cataract [facility] Diabetic retinal eye exam<sup>5</sup> [id number] 12/04/2018 Right Eye Findings: Negative for Diabetic Retinopathy. Other: Suspected Cataract Left Eye Findings: Diabetic Retinopathy: Mild Macular Edema: Mild Other: Suspected Cataract [facility] Diabetic retinal eye exam<sup>3</sup> [id number] 12/04/2018 Right Eye Findings: Negative for Diabetic Retinopathy. Other: Suspected Cataract Left Eye Findings: Diabetic Retinopathy: Mild Macular Edema: Mild Other: Suspected Cataract [facility] Diabetic retinal eye exam<sup>3</sup> [id number] 12/04/2018 Right Eye Findings: Negative for Diabetic Retinopathy. Other: Suspected Cataract Left Eye Findings: Diabetic Retinopathy: Mild Macular Edema: Mild Other: Suspected Cataract [facility] Diabetic retinal eye exam<sup>3</sup> [id number] 12/04/2018 Right Eye Findings: Negative for Diabetic Retinopathy. Other: Suspected Cataract Left Eye Findings: Diabetic Retinopathy: Mild Macular Edema: Mild Other: Suspected Cataract [facility] Diabetic retinal eye exam<sup>4</sup> [id number] 12/04/2018 Right Eye Findings: Negative for Diabetic Retinopathy. Other: Suspected Cataract Left Eye Findings: Diabetic Retinopathy: Mild Macular Edema: Mild Other: Suspected Cataract [facility] PTCA - Percutaneous transluminal coronary angioplasty [id number] 10/10/2014 [facility] Screening mammography [id number] 10/10/2014 [facility] PTCA - Percutaneous transluminal coronary angioplasty [id number] 10/10/2014 [facility] PTCA - Percutaneous transluminal coronary angioplasty [id number] 10/10/2014 [facility] Pneumococcal vaccination<sup>1</sup> [id number] 06/15/2012 Pneumovax [facility] Pneumococcal vaccination<sup>2</sup> [id number] 06/15/2012 [facility]neum[facility] Pneumococcal vaccination<sup>6</sup> [id number] 06/15/2012 [facility] Pneumococcal vaccination<sup>4</sup> [id number] 06/15/2012 [facility] Pneumococcal vaccination<sup>4</sup> [id number] 06/15/2012 [facility] Pneumococcal vaccination<sup>4</sup> [id number] 06/15/2012 Pneumovax [facility] Pneumococcal vaccination<sup>5</sup> [id number] 06/15/2012 [facility] Cholecystectomy [id number] 10/10/1966 [facility] Cholecystectomy [id number] 10/10/1966 [facility] Cholecystectomy [id number] 10/10/1966 [facility]
--- OUTSIDE RECORDS SUMMARY | 2019-03-29 06:22 | XMS REPORT | Summary of Care ---
Author Author [facility] Care [facility] Organization [facility] Address Unknown Phone Unavailable Care Team Providers Care Corporate Treasury Analyst Name Role Phone Anita Cordoba PCP Encounter HQ Encntr_aligiselle(FIN) [id number] Date(s): 03/07/19 - 03/08/19 [facility] [address] [place] [address]- Vital Signs No data available for this section Problem List Condition Effective Dates Status Health Status Informant Coronary artery Active disease(Confirmed) Benign essential Active hypertension(Confirm ed) BMI Active 28.0-28.9,adult(Conf irmed) Screening for breast Active cancer(Confirmed) DM Active retinopathy(Confirme d) 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 Migrated from [employer] ; Data migrated from [employer] on 11/11/2015. Procedures Procedure Date Related Diagnosis [...]
--- OUTSIDE RECORDS SUMMARY | 2019-03-29 06:22 | XMS REPORT | Summary of Care ---
Author Author [facility] Organization [facility] Address Unknown Phone Unavailable Encounter HQ Damonr_nati(FIN) [id number] Date(s): 12/04/18 - 12/04/18 [facility] [address], [address] [place] [address]- [phone] Discharge Disposition: Home or Self Care Attending Physician: Anita Cordoba MD Vital Signs Most recent to 1 oldest [Reference Range]: Height 147.32 cm (12/04/18 11:01 AM) Temperature Oral 98.1 DegF [96.4-99.1 DegF] (12/04/18 11:01 AM) Blood Pressure 153/83 mmHg [90-140/60-90 mmHg] *HI* (12/04/18 11:01 AM) Respiratory Rate 16 BRMIN [14-20 BRMIN] (12/04/18 11:01 AM) Peripheral Pulse 92 bpm Rate [60-100 bpm] (12/04/18 11:01 AM) Weight 61.818 kg (12/04/18 11:01 AM) Body Mass Index 28.48 m2 (12/04/18 11:01 AM) Problem List Condition Effective Dates Status Health Status Informant Coronary artery Active disease(Confirmed) Benign essential Active hypertension(Confirm ed) BMI Active 28.0-28.9,adult(Conf irmed) Screening for breast Active cancer(Confirmed) DM Active retinopathy(Confirme d) 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 Originally documented as NKA. Medications No Known Medications Results No data available for this section Immunizations Given and Recorded Vaccine Date Status Refusal Reason pneumococcal 23-valent vaccine1 06/15/12 Given 1Result Comment: pneumovax. Migrated from [employer] ; Data migrated from [employer] on 11/11/2015. Procedures Procedure Date Related Diagnosis Body Site Status Diabetic retinal eye exam1 12/04/18 Completed PTCA - Percutaneous transluminal coronary 2014 Completed angioplasty Screening mammography 2014 Completed Pneumococcal vaccination2 06/15/12 Completed Cholecystectomy 1967 Completed 1Right Eye Findings: Negative for Diabetic Retinopathy. Other: Suspected Cataract Left Eye Findings: Diabetic Retinopathy: Mild Macular Edema: Mild Other: Suspected Cataract 2Pneumovax Social History Social History Type Response Substance [...]
--- OUTSIDE RECORDS SUMMARY | 2019-03-29 06:22 | XMS REPORT | Summary of Care ---
Author Author [facility] Organization [facility] Address Unknown Phone Unavailable Encounter HQ Danelle_nati(FIN) [id number] Date(s): 09/11/17 - 09/12/17 [facility] [address], [address] [place], [place] [address]- [phone] Vital Signs No data available for this section Problem List Condition Effective Dates Status Health Status Informant Coronary artery Active disease(Confirmed) Screening for breast Active cancer(Confirmed) residential (current) Active 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(Confirmed) S/P PTCA [...] Severity Status NKDA1 Active 1Data migrated from [employer] on 12/02/15. Originally documented as NKA. Medications metFORMIN 1000 mg oral tablet 1,000 mg=1 tab, PO, BID, X 90 day, # 180 tab, 1 Refill(s), [id number] Start Date: 09/11/17 Stop Date: 09/12/17 Status: Completed Results No data available for this section Immunizations Given and Recorded Vaccine Date Status Refusal Reason pneumococcal 23-valent vaccine1 06/15/12 Given 1Result Comment: pneumovax. Migrated from [facility] ; Data migrated from [employer] on 11/11/2015. Procedures Procedure Date Related Diagnosis Body Site PTCA - Percutaneous transluminal coronary 2015 angioplasty Screening mammography 2014 Cholecystectomy 1967 Social [...]
--- OUTSIDE RECORDS SUMMARY | 2019-03-29 06:22 | XMS REPORT | Summary of Care ---
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 Originally documented as NKA. Medications No data available for this section Results No data available for this section Immunizations Given and Recorded Vaccine Date Status Refusal Reason pneumococcal 23-valent vaccine1 06/15/12 Given 1Result Comment: pneumovax. Migrated from [facility] ; Data migrated from [employer] on 11/11/2015. Procedures Procedure Date Related Diagnosis [...]
--- OUTSIDE RECORDS SUMMARY | 2019-03-29 06:22 | XMS REPORT | Summary of Care ---
Author Author [facility] Care [facility] Organization [facility] Address Unknown Phone Unavailable Encounter HQ Arie(FIN) [id number] Date(s): 12/05/18 - 12/06/18 [facility] [address], [address] [place] [address]- [phone] Vital Signs No data available for this section Problem List Condition Effective Dates Status Health Status Informant Coronary artery Active disease(Confirmed) Benign essential Active hypertension(Confirm ed) BMI Active 28.0-28.9,adult(Conf irmed) Screening for breast Active cancer(Confirmed) DM Active retinopathy(Confirme d) detention (current) Active 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(Confirmed) S/P PTCA [...] Severity Status NKDA1 Active 1Data migrated from [employer] on 12/02/15. Originally documented as NKA. Medications No data available for this section Results No data available for this section Immunizations Given and Recorded Vaccine Date Status Refusal Reason pneumococcal 23-valent vaccine1 06/15/12 Given 1Result Comment: pneumovax. Migrated from [facility] ; Data migrated from [employer] on 11/11/2015. Procedures Procedure Date Related [...]
--- OUTSIDE RECORDS SUMMARY | 2019-03-29 06:22 | XMS REPORT | Summary of Care ---
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 Originally documented as NKA. Medications No data available for this section Results No data available for this section Immunizations Given and Recorded Vaccine Date Status Refusal Reason pneumococcal 23-valent vaccine1 06/15/12 Given 1Result Comment: pneumovax. Migrated from OBS ; Data migrated from [employer] on 11/11/2015. Procedures Procedure Date Related Diagnosis [...]
--- OUTSIDE RECORDS SUMMARY | 2019-03-29 06:23 | XMS REPORT | Summary of Care ---
Author Author [facility] Care [facility] Organization [facility] Address Unknown Phone Unavailable Encounter HQ Danelle_nati(FIN) [id number] Date(s): 02/01/18 - 02/02/18 [facility] [address], [address] [place] [address]- [phone] Vital Signs No data available for this section Problem List Condition Effective Dates Status Health Status Informant Coronary artery Active disease(Confirmed) Benign essential Active hypertension(Confirm ed) Screening for breast Active cancer(Confirmed) [facility] (current) Active 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(Confirmed) S/P PTCA [...] Severity Status NKDA1 Active 1Data migrated from [employer] on 12/02/15. Originally documented as NKA. Medications No data available for this section Results No data available for this section Immunizations Given and Recorded Vaccine Date Status Refusal Reason pneumococcal 23-valent vaccine1 06/15/12 Given 1Result Comment: pneumovax. Migrated from [facility] ; Data migrated from [employer] on 11/11/2015. Procedures Procedure Date Related Diagnosis Body Site Status PTCA - Percutaneous transluminal coronary 2014 Completed angioplasty Screening mammography 2014 Completed Cholecystectomy 1967 Completed Social History Social History Type Response Substance Abuse Use: None. Exercise Exercise type: none. Employment/School Status: Retired. Alcohol Past Smoking Status Former smoker; Type: Cigarettes; Exposure to Tobacco Smoke None; Cigarette Smoking Last 365 Days No; Reg Smoking Cessation Counseling No; Stopped at age: 22; entered on: 10/24/17 Assessment and Plan No data available for this section
--- OUTSIDE RECORDS SUMMARY | 2019-03-29 06:23 | XMS REPORT | Summary of Care ---
Author Author [facility] Primary Care [facility] Organization [facility] Address Unknown Phone Unavailable Encounter HQ Arie(FIN) [id number] Date(s): 01/16/19 - 01/17/19 [facility] [address] [place] [address]- Vital Signs No data available for this section Problem List Condition Effective Dates Status Health Status Informant Coronary artery Active disease(Confirmed) Benign essential Active hypertension(Confirm ed) BMI Active 28.0-28.9,adult(Conf irmed) Screening for breast Active cancer(Confirmed) DM Active retinopathy(Confirme d) retirement (current) Active 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(Confirmed) S/P PTCA [...] Severity Status NKDA1 Active 1Data migrated from [employer] on 12/02/15. Originally documented as NKA. Medications No data available for this section Results No data available for this section Immunizations Given and Recorded Vaccine Date Status Refusal Reason pneumococcal 23-valent vaccine1 06/15/12 Given 1Result Comment: pneumovax. Migrated from OBS ; Data migrated from [employer] on 11/11/2015. Procedures Procedure Date Related Diagnosis [...]
--- OUTSIDE RECORDS SUMMARY | 2019-03-29 06:23 | XMS REPORT | Summary of Care ---
Author Author [facility] Primary Care [facility] Organization [facility] Address Unknown Phone Unavailable Encounter HQ Danelle_nati(FIN) [id number] Date(s): 10/17/17 - 10/17/17 [facility] 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 Originally documented as NKA. Medications No data available for this section Results No data available for this section Immunizations Given and Recorded Vaccine Date Status Refusal Reason pneumococcal 23-valent vaccine1 06/15/12 Given 1Result Comment: pneumovax. Migrated from OBS ; Data migrated from [employer] on 11/11/2015. Procedures Procedure Date Related Diagnosis [...]
--- OUTSIDE RECORDS SUMMARY | 2019-03-29 06:23 | XMS REPORT | Summary of Care ---
Author Author [facility] Organization [facility] Address Unknown Phone Unavailable Care Team Providers Care Drier Name Role Phone Anita Cordoba PCP Encounter HQ Encntr_nati(FIN) [id number] Date(s): 02/18/19 - 02/19/19 [facility] [address] [place] [address]- Vital Signs No data available for this section Problem List Condition Effective Dates Status Health Status Informant Coronary artery Active disease(Confirmed) Benign essential Active hypertension(Confirm ed) BMI Active 28.0-28.9,adult(Conf irmed) Screening for breast Active cancer(Confirmed) DM Active retinopathy(Confirme d) 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 Procedures Procedure Date Related Diagnosis Body Site Status Biopsy of breast1 02/15/19 Completed Bone density scan2 01/02/19 Completed Screening mammography3 01/02/19 Completed Diabetic retinal eye exam4 12/04/18 Completed PTCA - Percutaneous transluminal coronary 2014 Completed angioplasty Pneumococcal vaccination5 06/15/12 Completed Cholecystectomy 1967 Completed 1Diagnosis Right breast, stereotactic core biopsy 9:00 aspect - DUCTAL CARCINOMA IN SITU, NUCLEAR GRADE 2, CRIBRIFORM AND MICROPAPILLAR Y TYPES WITH COMEDONECROSIS AND CALCIFICATIONS 2IMPRESSION: OSTEOPENIA Patient is at medium risk for fracture. 3IMPRESSION: INCOMPLETE: NEEDS ADDITIONAL IMAGING EVALUATION RECOMMENDATION:The linear heterogeneous calcifications in the right breast are i ndeterminate. Magnification views are recommended. 4Right Eye Findings: Negative for Diabetic Retinopathy. Other: Suspected Cataract Left Eye Findings: Diabetic Retinopathy: Mild Macular Edema: Mild Other: Suspected Cataract 5Pneumovax Social History Social History Type Response Substance [...]
--- OUTSIDE RECORDS SUMMARY | 2019-03-29 06:23 | XMS REPORT | Summary of Care ---
Author Author [facility] Primary Care [facility] Organization [facility] Address Unknown Phone Unavailable Encounter HQ Arie(FIN) [id number] Date(s): 01/11/19 - 01/12/19 [facility] [address] [place] [address]- Vital Signs No data available for this section Problem List Condition Effective Dates Status Health Status Informant Coronary artery Active disease(Confirmed) Benign essential Active hypertension(Confirm ed) BMI Active 28.0-28.9,adult(Conf irmed) Screening for breast Active cancer(Confirmed) DM Active retinopathy(Confirme d) senior living (current) Active 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(Confirmed) S/P PTCA [...] Severity Status NKDA1 Active 1Data migrated from [employer] on 12/02/15. Originally documented as NKA. Medications No data available for this section Results No data available for this section Immunizations Given and Recorded Vaccine Date Status Refusal Reason pneumococcal 23-valent vaccine1 06/15/12 Given 1Result Comment: pneumovax. Migrated from OBS ; Data migrated from [employer] on 11/11/2015. Procedures Procedure Date Related Diagnosis [...]
--- OUTSIDE RECORDS SUMMARY | 2019-03-29 06:23 | XMS REPORT | Summary of Care ---
Author Author [facility] Organization [facility] Address Unknown Phone Unavailable Encounter HQ Arie(FIN) [id number] Date(s): 10/24/17 - 10/24/17 [facility] [address], [address] [place] [address]- [phone] Discharge Disposition: Home or Self Care Attending Physician: Anita Cordoba MD Vital Signs Most recent to 1 oldest [Reference Range]: Height 147.32 cm (10/24/17 1:57 PM) Temperature Oral 98.3 DegF [96.4-99.1 DegF] (10/24/17 1:57 PM) Blood Pressure 161/87 mmHg [90-140/60-90 mmHg] *HI* (10/24/17 1:57 PM) Respiratory Rate 16 BRMIN [14-20 BRMIN] (10/24/17 1:57 PM) Peripheral Pulse 93 bpm Rate [60-100 bpm] (10/24/17 1:57 PM) Weight 63.182 kg (10/24/17 1:57 PM) Body Mass Index 29.11 m2 (10/24/17 1:57 PM) Problem List Condition Effective Dates Status Health Status Informant Coronary artery Active disease(Confirmed) Benign essential Active hypertension(Confirm ed) Screening for breast Active cancer(Confirmed) 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 Originally documented as NKA. Medications atorvastatin 20 mg oral tablet 20 mg=1 tab, PO, Bedtime, # 90 tab, 1 Refill(s) Start Date: 10/24/17 Stop Date: 04/22/18 Status: Ordered NovoLIN 70/30 20 units with breakfast and 15 units with dinner, SUB-Q, BID-Meals, # 3 vial, 3 Refill(s) Start Date: 10/24/17 Status: Ordered Results No data available for this section Immunizations Given and Recorded Vaccine Date Status Refusal Reason pneumococcal 23-valent vaccine1 06/15/12 Given 1Result Comment: pneumovax. Migrated from [facility] ; Data migrated from [employer] on 11/11/2015. Procedures Procedure Date Related Diagnosis Body Site Status PTCA - Percutaneous transluminal coronary 2014 Completed angioplasty Screening mammography 2014 Completed Cholecystectomy 1966 Completed Social History Social History Type Response [...]
--- OUTSIDE RECORDS SUMMARY | 2019-03-29 06:23 | XMS REPORT ---
Author Author [facility] Address Unknown Phone Unavailable Care Team Providers Care Pantograph I Engraver Name Role Phone Mario KHALIL Unavailable Unavailable Problems This patient has no known problems. Allergies, Adverse Reactions, Alerts This patient has no known allergies or adverse reactions. Medications This patient has no known medications. Results Test Description Test Time Test Comments Text Results Atomic Results Result Comments CHEST 2 VIEWS 2019-03-26 12:11:00 [place] [address] Patient Name: ANDI FELIZ MR #: [id number] : 1945 Age/Sex: 74/F Req #: [id number] [facility] Physician: Ordered by: GENNA KHALIL MD Report #: [id number] Location: OR Room/Bed: Procedure: [id number] DX/CHEST 2 VIEWS Exam Date: 03/26/19 Exam Time: 1004 REPORT STATUS: Signed EXAMINATION: PA and lateral views of the chest. COM PARISON: None CLINICAL HISTORY: Preoperative evaluation, breast mass DISCUSSION: Lines/tubes: None. Lungs: The lungs are well inflated and clear. No pneumonia or pulmonary edema. Pleura: No pleural effusion or pneumothorax. Heart and mediastinum: The cardiomediastinal silhouette is normal. Bones and soft tissues: No acute bony abnormalities. IMPRESSION: No acute cardiopulmonary abnormalities. Signed by: Dr. Celia Trejo M.D. on 03/26/2019 12:12 PM Dictated By: CELIA TREJO MD [id number] Transcribed By: DIOR on 03/26/19 1212 COPY TO: GENNA KHALIL MD
--- OUTSIDE RECORDS SUMMARY | 2019-03-29 06:23 | XMS REPORT | Summary of Care ---
Author Author [facility] Organization [facility] Address Unknown Phone Unavailable Encounter HQ Arie(FIN) [id number] Date(s): 02/06/18 - 02/06/18 [facility] [address], [address] [place] [address]- [phone] Discharge Disposition: Home or Self Care Attending Physician: Anita Cordoba MD Vital Signs Most recent to 1 oldest [Reference Range]: Height 147.32 cm (02/06/18 1:42 PM) Temperature Oral 98.7 DegF [96.4-99.1 DegF] (02/06/18 1:42 PM) Blood Pressure 143/71 mmHg [90-140/60-90 mmHg] *HI* (02/06/18 1:42 PM) Respiratory Rate 16 BRMIN [14-20 BRMIN] (02/06/18 1:42 PM) Peripheral Pulse 87 bpm Rate [60-100 bpm] (02/06/18 1:42 PM) Weight 63.352 kg (02/06/18 1:42 PM) Body Mass Index 29.19 m2 (02/06/18 1:42 PM) Problem List Condition Effective Dates Status Health Status Informant Coronary artery Active disease(Confirmed) Benign essential Active hypertension(Confirm ed) Screening for breast Active cancer(Confirmed) longterm (current) Active 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(Confirmed) S/P PTCA [...] Severity Status NKDA1 Active 1Data migrated from [employer] on 12/02/15. Originally documented as NKA. Medications atorvastatin 20 mg oral tablet 20 mg=1 tab, PO, Bedtime, # 90 tab, 1 Refill(s), given to patient Start Date: 02/06/18 Stop Date: 08/05/18 Status: Ordered glipiZIDE 5 mg oral tablet 5 mg=1 tab, PO, BID-Before Meals, # 180 tab, 1 Refill(s), given to patient Start Date: 02/06/18 Status: Ordered lisinopril 2.5 mg oral tablet 2.5 mg=1 tab, PO, Daily, # 90 tab, 1 Refill(s), given to patient Start Date: 02/06/18 Stop Date: 08/05/18 Status: Ordered metFORMIN 1000 mg oral tablet 1,000 mg=1 tab, PO, BID, # 180 tab, 1 Refill(s) Start Date: 12/15/17 Stop Date: 02/06/18 Status: Discontinued metFORMIN 1000 mg oral tablet 1,000 mg=1 tab, PO, BID, # 180 tab, 1 Refill(s), given to patient Start Date: 02/06/18 Stop Date: 08/05/18 Status: Ordered Results No data available for this section Immunizations Given and Recorded Vaccine Date Status Refusal Reason pneumococcal 23-valent vaccine1 06/15/12 Given 1Result Comment: pneumovax. Migrated from [facility] ; Data migrated from [employer] on 11/11/2015. Procedures Procedure Date Related Diagnosis [...] No; Stopped at age: 22; entered on: 02/06/18 Assessment and Plan No data available for this section
--- OUTSIDE RECORDS SUMMARY | 2019-03-29 06:23 | XMS REPORT | Summary of Care ---
Author Author [facility] Organization [facility] Address Unknown Phone Unavailable Encounter HQ Arie(FIN) [id number] Date(s): 10/24/17 - 10/24/17 [facility] [address], [address] [place] [address]- [phone] Discharge Disposition: Home or Self Care Attending [...] hypertension(Confirm ed) Screening for breast Active cancer(Confirmed) senior living (current) Active 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(Confirmed) [...] Severity Status NKDA1 Active 1Data migrated from [employer] on 12/02/15. Originally documented as NKA. Medications atorvastatin 20 mg oral tablet 20 mg=1 tab, PO, Bedtime, # 90 tab, 1 Refill(s) Start Date: 10/24/17 Stop Date: 04/22/18 Status: Ordered glipiZIDE 5 mg oral tablet 5 mg=1 tab, PO, BID-Before Meals, # 180 tab, 1 Refill(s) Start Date: 10/27/17 Status: Ordered lisinopril 2.5 mg oral tablet 2.5 mg=1 tab, PO, Daily, # 90 tab, 1 Refill(s) Start Date: 10/27/17 Stop Date: 04/25/18 Status: Ordered NovoLIN 70/30 20 units with breakfast and 15 units with dinner, SUB-Q, BID-Meals, # 3 vial, 3 Refill(s) Start Date: 10/24/17 Status: Ordered Results No data available for this section Immunizations Given and Recorded Vaccine Date Status Refusal Reason pneumococcal 23-valent vaccine1 06/15/12 Given 1Result Comment: pneumovax. Migrated from OBS ; Data migrated from [employer] on 11/11/2015. Procedures Procedure Date Related Diagnosis [...]
--- OUTSIDE RECORDS SUMMARY | 2019-03-29 06:23 | XMS REPORT | Summary of Care ---
Author Author [facility] Organization [facility] Address Unknown Phone Unavailable Care Team Providers Care School Bus Inspector Name Role Phone Anita Cordoba PCP Encounter HQ Damonr_nati(FIN) [id number] Date(s): 02/15/19 - 02/15/19 [facility] [address] [place] [address]- [phone] Discharge Disposition: Home or Self Care Attending Physician: Anita Cordoba MD Referring Physician: Anita Cordoba MD Vital Signs No data available for this section Problem List Condition Effective Dates Status Health Status Informant Coronary artery Active disease(Confirmed) Benign essential Active hypertension(Confirm ed) BMI Active 28.0-28.9,adult(Conf irmed) Screening for breast Active cancer(Confirmed) DM Active retinopathy(Confirme d) 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 Procedures Procedure Date Related Diagnosis [...]
--- OUTSIDE RECORDS SUMMARY | 2019-03-29 06:23 | XMS REPORT | Summary of Care ---
Author Author [facility] Organization [facility] Address Unknown Phone Unavailable Encounter COURTNEY Sargent(AYO) [id number] Date(s): 01/11/19 - 01/11/19 [facility] [address] [place] [phone] Discharge Disposition: Home or Self Care Attending Physician: Anita Cordoba MD Referring Physician: Anita Cordoba MD Vital Signs No data available for this section Problem List Condition Effective Dates Status Health Status Informant Coronary artery Active disease(Confirmed) Benign essential Active hypertension(Confirm ed) BMI Active 28.0-28.9,adult(Conf irmed) Screening for breast Active cancer(Confirmed) DM Active retinopathy(Confirme d) assisted (current) Active 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(Confirmed) S/P PTCA [...] Severity Status NKDA1 Active 1Data migrated from [employer] on 12/02/15. Originally documented as NKA. Medications No data available for this section Results No data available for this section Immunizations Given and Recorded Vaccine Date Status Refusal Reason pneumococcal 23-valent vaccine1 06/15/12 Given 1Result Comment: pneumovax. Migrated from OBS ; Data migrated from [employer] on 11/11/2015. Procedures Procedure Date Related [...]
--- OUTSIDE RECORDS SUMMARY | 2019-03-29 06:23 | XMS REPORT | Summary of Care ---
Author Author [facility] Organization [facility] Address Unknown Phone Unavailable Encounter HQ Arie(FIN) [id number] Date(s): 02/06/18 - 02/06/18 [facility] [address], [address] [place] [address]- [phone] Discharge Disposition: Home or Self Care Attending Physician: Anita oCrdoba MD Vital Signs Most recent to 1 [...] hypertension(Confirm ed) Screening for breast Active cancer(Confirmed) correction (current) Active 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(Confirmed) S/P PTCA [...] Severity Status NKDA1 Active 1Data migrated from [employer] on 12/02/15. Originally documented as NKA. Medications [...] 06/15/12 Given 1Result Comment: pneumovax. Migrated from [facility] ; Data migrated from [employer] on 11/11/2015. Procedures Procedure Date Related Diagnosis [...]
--- OUTSIDE RECORDS SUMMARY | 2019-03-29 06:23 | XMS REPORT | Summary of Care ---
Author Author [facility] Organization [facility] Address Unknown Phone Unavailable Care Team Providers Care Fur Remodeler Name Role Phone Anita Cordoba PCP Encounter HQ Damonr_nati([facility]) [id number] Date(s): 02/20/19 - 02/20/19 [facility] [address] [place] [address] [phone] Discharge Disposition: Home or Self Care Attending Physician: Anita Cordoba MD Vital Signs Most recent to 1 oldest [Reference Range]: Height 147.32 cm (02/20/19 3:12 PM) Temperature Oral 98.7 DegF [96.4-99.1 DegF] (02/20/19 3:12 PM) Blood Pressure 173/86 mmHg [90-140/60-90 mmHg] *HI* (02/20/19 3:12 PM) Respiratory Rate 16 BRMIN [14-20 BRMIN] (02/20/19 3:12 PM) Peripheral Pulse 82 bpm Rate [60-100 bpm] (02/20/19 3:12 PM) Weight 62.898 kg (02/20/19 3:12 PM) Body Mass Index 28.98 m2 (02/20/19 3:12 PM) Problem List Condition Effective Dates Status Health Status Informant Coronary artery Active disease(Confirmed) Benign essential Active hypertension(Confirm ed) BMI Active 28.0-28.9,adult(Conf irmed) Screening for breast Active cancer(Confirmed) DM Active retinopathy(Confirme d) custodial (current) Active 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(Confirmed) S/P PTCA [...] Alerts No Known Medication Allergies Medications No Known Medications Results No data available for this section Immunizations Given and Recorded Vaccine Date Status Refusal Reason pneumococcal 23-valent vaccine1 06/15/12 Given 1Result Comment: pneumovax. Migrated from [employer] ; Data migrated from [employer] on 11/11/2015. Procedures Procedure Date Related Diagnosis [...]
--- OUTSIDE RECORDS SUMMARY | 2019-03-29 06:23 | XMS REPORT | Summary of Care ---
Author Organization Unknown Address Unknown Phone Unavailable Care Team Providers Care Destination Specialist Name Role Phone Kimberly Maldonado PCP Encounter HQ Encntr_alias([facility]) [id number] Date(s): 11/18/14 - 11/18/14 [facility] [address] Discharge Disposition: Home Physician Attending: Anita Cordoba MD Reason for Visit V76.12 - SCREEN MAMMOGRA Problem List No data available for this section Allergies, Adverse Reactions, Alerts No data available for this section Medications No data available for this section Medications Administered During Your Visit No data available for this section Immunizations No data available for this section
--- OUTSIDE RECORDS SUMMARY | 2019-03-29 06:23 | XMS REPORT | Summary of Care ---
Author Author [facility] [place] Organization [facility] Address Unknown Phone Unavailable Encounter HQ Danelle_nati(FIN) [id number] Date(s): 10/17/17 - 10/17/17 [facility] [address], [address] [place] [address]- [phone] Attending Physician: Anita Cordoba MD Vital Signs No data available for this section Problem List Condition Effective Dates Status Health Status Informant Coronary artery Active disease(Confirmed) Benign essential Active hypertension(Confirm ed) Screening for breast Active cancer(Confirmed) [place] (current) Active 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(Confirmed) S/P PTCA [...] Severity Status NKDA1 Active 1Data migrated from [employer] on 12/02/15. Originally documented as NKA. Medications No data available for this section Results No data available for this section Immunizations Given and Recorded Vaccine Date Status Refusal Reason pneumococcal 23-valent vaccine1 06/15/12 Given 1Result Comment: pneumovax. Migrated from OBS ; Data migrated from [employer] on 11/11/2015. Procedures Procedure Date Related [...]
--- OUTSIDE RECORDS SUMMARY | 2019-03-29 06:23 | XMS REPORT | Summary of Care ---
Author Author [facility] Organization [facility] Address Unknown Phone Unavailable Encounter HQ Arie(FIN) [id number] Date(s): 03/26/19 - 03/26/19 [facility] [address] [place] [address] [phone] Attending Physician: Anita Cordoba MD Vital Signs No data available for this section Problem List Condition Effective Dates Status Health Status Informant Coronary artery Active disease(Confirmed) Benign essential Active hypertension(Confirm ed) BMI Active 28.0-28.9,adult(Conf irmed) Screening for breast Active cancer(Confirmed) DM Active retinopathy(Confirme d) longterm (current) Active 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(Confirmed) S/P [...] Migrated from OBS ; Data migrated from [employer] on 11/11/2015. Procedures Procedure Date Related Diagnosis Body Site Status Diabetic retinal eye exam1 02/19/19 Completed Biopsy of breast2 02/15/19 Completed Bone density scan3 3/26/19 Completed Screening mammography4 01/02/19 Completed Diabetic retinal [...]
--- OUTSIDE RECORDS SUMMARY | 2019-03-29 06:23 | XMS REPORT | Summary of Care ---
Author Author [facility] Organization [facility] Address Unknown Phone Unavailable Encounter HQ Arie(FIN) [id number] Date(s): 03/23/19 - 03/24/19 [facility] [address] [place] [address]- Vital Signs No data available for this section Problem List Condition Effective Dates Status Health Status Informant Coronary artery Active disease(Confirmed) Benign essential Active hypertension(Confirm ed) BMI Active 28.0-28.9,adult(Conf irmed) Screening for breast Active cancer(Confirmed) DM Active retinopathy(Confirme d) [place] (current) Active 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(Confirmed) S/P PTCA [...] Migrated from OBS ; Data migrated from [employer] on 11/11/2015. Procedures Procedure Date Related Diagnosis [...]
[2019-03-29] MEDS ORDERED: NOVOLOG MI100 UNIT/1 SQ (08:01)
[2019-03-29] MEDS ORDERED: ACETAMINOPHEN 1000 MG/100 ML IV PRN (10:30)
[2019-03-29] MEDS ORDERED: HYDROCODONE/APAP 7.5MG-325MG 1 EA TAB PO PRN (10:30)
[2019-03-29] MEDS ORDERED: HYDROMORPHONE 1MG/1ML INJ IV PRN (10:30)
[2019-03-29] MEDS ORDERED: ONDANSETRON HCL INJ 2MG/ML 2ML 2 MG/ML VIAL IV PRN (10:30)
[2019-03-29] MEDS ORDERED: FENTANYL CITRATE/PF 100MCG/2 ML INJ ONE ×2 (10:39→17:38)
--- OUTSIDE RECORDS SUMMARY | 2019-03-29 10:41 | XMS REPORT | Clinical Summary ---
Author Author [facility] Organization [facility] Address Unknown Phone Unavailable Care Team Providers Care Pharmacy Stock Clerk Name Role Phone Asked, No Pcp PCP [...] more information, suha jeffrey contact: Narinder Espinoza [address] [place] [address]
--- NOTE | 2019-03-29 11:01 | Operative Report ---
DATE OF PROCEDURE: 03/29/2019 SURGEON: Dayron Reyna MD PREOPERATIVE DIAGNOSIS: Right breast cancer. POSTOPERATIVE DIAGNOSIS: Right breast cancer. OPERATION PERFORMED: Right total mastectomy. WAIST PLEATER: MISSY Junior. ANESTHESIA: General. COMPLICATIONS: None. ESTIMATED BLOOD LOSS: 25 mL. DESCRIPTION OF PROCEDURE: With the patient lying in bed in the supine position under good general anesthesia, the right chest was prepped with Betadine solution and draped in the usual manner. An elliptical incision was made to include the nipple areolar complex. Flaps were then developed in all directions. The borders being superiorly the clavicle, medially the sternum, inferiorly the rectus muscle and laterally the latissimus dorsi. The breast tissue was then slowly and carefully taken off the pectoralis muscle from medial to lateral. The lateral border of the pectoralis major muscle was then freed up and from the breast and the breast was totally and completely removed and sent for pathological examination after proper orientation. The whole area was then thoroughly irrigated. Perfect hemostasis was ascertained. A 10 flat Sajan-Bhatia drain was then placed through a separate stab wound incision and sutured to the skin with 2-0 silk and the wound was then closed with interrupted vertical mattress sutures of 2-0 and 3-0 silk. A dressing was applied. The sponge, lap, and needle count was correct. The patient tolerated the procedure well and returned to the recovery room in stable condition. Dayron Reyna MD JLR/MODL /[id number]
[2019-03-29 12:00] VITALS: BP 174/84
[2019-03-29] MEDS ORDERED: HYDROMORPHONE 2MG/ML 2 MG/ML ML IV PRN (12:15)
[2019-03-29] MEDS: SODIUM CHLORIDE 0.9% 1000ML 1,000 ML IV SCH ×2 (12:17→21:24)
[2019-03-29 12:22] VITALS: BP 174/84
--- NOTE | 2019-03-29 12:30 | NUR ---
received pt via stretcher, AAOx3, Resp even and unlabored. oriented to room and use of call light, call light within reach.
[2019-03-29 13:54] VITALS: BP 174/84
[2019-03-29] MEDS ORDERED: DEXAMETHASONE SOD PHOS INJ 4 MG/ML VIAL ONE (15:27)
[2019-03-29] MEDS ORDERED: KETOROLAC TROMETHAMINE 30 MG/ML VIAL ONE (15:27)
[2019-03-29] MEDS ORDERED: ONDANSETRON HCL INJ 2MG/ML 2ML 2 MG/ML VIAL ONE (15:27)
[2019-03-29] MEDS ORDERED: PROPOFOL IV EMULSION 10 MG/ML 20 ML VIAL ONE (15:27)
[2019-03-29 16:08] VITALS: BP 144/71
[2019-03-29] MEDS ORDERED: NON-FORMULARY MEDICATION (Insuln Asp Prt/Insulin Aspart (Novolog Mix 70-30 Flexpen Syrn) 2 SQ SCH (17:00)
[2019-03-29] MEDS: GLIPIZIDE 5 MG TAB PO SCH (17:25)
[2019-03-29] MEDS: METFORMIN HCL 500 MG TAB PO SCH (17:25)
[2019-03-29] MEDS: INSULIN ASPART 70/30 100 UNITS/ML VIAL SC SCH (17:25)
[2019-03-29] MEDS ORDERED: MIDAZOLAM HCL 2 MG/2 ML VIAL ONE (17:38)
[2019-03-29 20:46] VITALS: BP 180/78
[2019-03-29 21:00] VITALS: BP 180/78
[2019-03-29] MEDS ORDERED: ATORVASTATIN 20 MG TAB PO SCH (21:00)
--- NOTE | 2019-03-29 22:27 | NUR ---
Assessment done.aaox4.ambulates.dressing is dry.kirit is draining well.no pain voiced.no resp.distress.bed locked and in lowest position.phone and call light within reach.instructed to call for assistance as needed.keep monitor the pt.
[2019-03-30] VITALS: BP 143/65
[2019-03-30 04:00] VITALS: BP 140/71
[2019-03-30] MEDS: SODIUM CHLORIDE 0.9% 1000ML 1,000 ML IV SCH (05:59)
--- NOTE | 2019-03-30 06:00 | NUR ---
HOB ELEVATED.VOIDED.REFUSED PAIN MEDICINE.APPLIED ICE PACK .JOSEFINA DRAIN EMPTIED.STABLE CONDITION.
[2019-03-30 06:17] LABS: BASOPHILS % 0.1 % (0.0-1.0); EOSINOPHILS % 0.3 % (0.0-6.0); HEMATOCRIT 28.2 % (34.2-44.1); HEMOGLOBIN 9.4 g/dL (12.0-16.0); LYMPHOCYTES # (AUTO) 1.9 (1.0-3.2); LYMPHOCYTES % 19.8 % (18.0-39.1); MEAN CORPUSCULAR HEMOGLOBIN 29.2 pg (28-32); MEAN CORPUSCULAR HGB CONC 33.3 g/dL (31-35); MEAN CORPUSCULAR VOLUME 87.6 fL (81-99); MONOCYTES # (AUTO) 0.7 (0.2-0.8); MONOCYTES % 7.8 % (4.4-11.3); NEUTROPHILS # (AUTO) 6.7 (2.1-6.9); NEUTROPHILS % 71.4 % (38.7-80.0); PLATELET COUNT 141 x10e3/uL (140-360); RED BLOOD COUNT 3.22 x10e6/uL (3.6-5.1)
[2019-03-30 06:37] LABS: ALANINE AMINOTRANSFERASE 11 IU/L (0-55); ALBUMIN 3.2 g/dL (3.5-5.0); ALBUMIN/GLOBULIN RATIO 1.2 (0.8-2.0); ALKALINE PHOSPHATASE 47 IU/L (40-150); ANION GAP 12.1 mmol/L (8-16); BLOOD UREA NITROGEN 14 mg/dL (7-26); BUN/CREATININE RATIO 20 (6-25); CALCIUM 8.8 mg/dL (8.4-10.2); CARBON DIOXIDE 26 mmol/L (22-29); CHLORIDE 104 mmol/L (98-107); CREATININE, SERUM 0.69 mg/dL (0.57-1.11); EST GLOMERULAR FILTRATION RATE > 60 ML/MIN (60-); GLUCOSE 104 mg/dL (74-118); POTASSIUM 4.1 mmol/L (3.5-5.1); SODIUM 138 mmol/L (136-145)
--- NOTE | 2019-03-30 07:00 | NUR ---
Bed side report given to the oncoming rn.stable condition.
[2019-03-30 08:37] VITALS: BP 176/77
[2019-03-30] MEDS: GLIPIZIDE 5 MG TAB PO SCH (08:45)
[2019-03-30] MEDS: METFORMIN HCL 500 MG TAB PO SCH (08:45)
[2019-03-30] MEDS: INSULIN ASPART 70/30 100 UNITS/ML VIAL SC SCH (08:46)
--- NOTE | 2019-03-30 08:46 | NUR ---
PT OOB, SITTING IN BS CHAIR, DENIES PAIN AT THIS TIME, REFUSED AM INSULIN, STATES "DOES NOT TAKE WHEN THAT LOW", EMAR NOTED , CALL LIGHT WITHIN REACH
[2019-03-30 08:52] VITALS: BP 176/77
[2019-03-30] MEDS ORDERED: LISINOPRIL 2.5 MG TAB PO SCH (09:00)
--- NOTE | 2019-03-30 09:30 | NUR ---
AMBULATING IN HALLWAY, STEADY GAIT
--- NOTE | 2019-03-30 13:00 | NUR ---
SITTING IN BS CHAIR, CALL LIGHT WITHIN REACH
[2019-03-30 13:41] VITALS: BP 136/74
[2019-03-30] MEDS ORDERED: KEFLEX500 MG PO (15:28)
--- NOTE | 2019-03-30 15:30 | NUR ---
MD Yina KHALIL INTO SEE PT, DISCUSSED DISCHARGE INSTRUCTIONS WITH PT, VERBALIZED UNDERSTANDING
--- NOTE | 2019-03-30 16:05 | NUR ---
DISCHARGE INSTRUCTIONS REVIEWED WITH PATIENT, DEMONSTRATED HOW TO EMPTY JOSEFINA DRAIN AND MEASURE AND RECORD OUTPUT, PT AND FAMILY VERBALIZED UNDERSTANDING, WHEELED OFF UNIT VIA WC FOR DISCHARGE, NO CHANGE IN CONDITION
== END 2019-03-30 16:01 | disposition home or self-care (01) ==
LOC: OR 06:12 → PACU V 10:23 → MED/SURG 11:43
PROVIDERS: ADMIT Surgery; ATTEND Surgery
DX: C50.911 Malignant neoplasm of unspecified site of right female breast (principal); Z01.810 Encounter for preprocedural cardiovascular examination; Z01.812 Encounter for preprocedural laboratory examination; Z01.811 Encounter for preprocedural respiratory examination; I10 Essential (primary) hypertension; I25.10 Atherosclerotic heart disease of native coronary artery without angina pectoris; Z95.5 Presence of coronary angioplasty implant and graft; E11.9 Type 2 diabetes mellitus without complications; Z79.4 Long term (current) 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
CPT/HCPCS: 19303; 36415 ×3; 71046; 80053 ×2; 82948 ×2; 85025 ×2; 88307; 93005; G0378 ×2; J1100; J1815; J1885; J2250; J2405; J2704; J7030 ×2

== ENCOUNTER → 2019-06-06 | Day surgery (SDC) | payer MEDICARE ==
[2019-06-04 10:29] LABS: BASOPHILS % 0.4 % (0.0-1.0); EOSINOPHILS # (AUTO) 0.2 (0.0-0.4); EOSINOPHILS % 2.8 % (0.0-6.0); HEMATOCRIT 33.8 % (34.2-44.1); LYMPHOCYTES # (AUTO) 1.7 (1.0-3.2); LYMPHOCYTES % 30.7 % (18.0-39.1); MEAN CORPUSCULAR HEMOGLOBIN 28.8 pg (28-32); MEAN CORPUSCULAR HGB CONC 32.5 g/dL (31-35); MEAN CORPUSCULAR VOLUME 88.5 fL (81-99); MONOCYTES # (AUTO) 0.4 (0.2-0.8); MONOCYTES % 7.6 % (4.4-11.3); NEUTROPHILS # (AUTO) 3.3 (2.1-6.9); NEUTROPHILS % 58.5 % (38.7-80.0); PLATELET COUNT 154 x10e3/uL (140-360); RED BLOOD COUNT 3.82 x10e6/uL (3.6-5.1); RED CELL DISTRIBUTION WIDTH 12.7 % (11.7-14.4)
[2019-06-04 10:43] LABS: BLOOD UREA NITROGEN 16 mg/dL (7-26); BUN/CREATININE RATIO 24 (6-25); CALCIUM 9.5 mg/dL (8.4-10.2); CARBON DIOXIDE 26 mmol/L (22-29); CHLORIDE 104 mmol/L (98-107); CREATININE, SERUM 0.67 mg/dL (0.57-1.11); EST GLOMERULAR FILTRATION RATE > 60 ML/MIN (60-); GLUCOSE 151 mg/dL (74-118); SODIUM 140 mmol/L (136-145)
[~2019-06-06] MED LIST changes: +ASPIRIN81 MG PO; +BUPIVACAINE 0.25%/EPI 30ML SDV INJ ONE; +BUPIVACAINE/EPINEPHRINE 0.25% 10 ML SDV INJ ONE; +CEFAZOLIN SOD 1 GM VIAL ONE; +DEXAMETHASONE SOD PHOS INJ 4 MG/ML VIAL ONE; +ESMOLOL HCL 100MG/10ML 10 MG/ML VIAL ONE; +FENTANYL CITRATE/PF 100MCG/2 ML INJ ONE; +KEFLEX500 MG PO; +LIDOCAINE HCL 2% LOCAL INJ 5 ML SDV VIAL INJ ONE; +METOCLOPRAMIDE HCL 10 MG/2ML VIAL ONE; +MIDAZOLAM HCL 2 MG/2 ML VIAL ONE; +NOVOLOG MI100 UNIT/1 SQ; +ONDANSETRON HCL INJ 2MG/ML 2ML 2 MG/ML VIAL ONE; +PROPOFOL IV EMULSION 10 MG/ML 20 ML VIAL ONE; +SEVOFLURANE INHAL SOLN 250 ML PEN BTL ONE
--- OUTSIDE RECORDS SUMMARY | 2019-06-06 08:41 | XMS REPORT | Continuity of Care Document ---
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 Name Role Phone 1bib Information Litbloc Unavailable Unavailable Problems Problem Status Onset Date Classification Date Reported Comments Source ABNORMAL MAMMOGRAM OF RIGHT BREAST Active 01/30/2019 [facility] Z12.13 - ENCNTR SCREEN FOR MALIGNANT NE Active 12/08/2018 [facility] Z12.31 - ENCNTR SCREEN MAMMOGRAM FOR MA Active 03/15/2017 [facility] [place] Chest pain Active 12/13/2014 Problem 03/30/2019 [facility] Coronary arteriosclerosis (disorder) Active Problem 06/03/2019 [facility], [facility] Benign essential hypertension (disorder) Active Problem 06/03/2019 [facility] Body mass index index 25-29 - overweight (finding) Active Problem 06/03/2019 [facility] Breast neoplasm screening status (finding) Active Problem 04/03/2019 [facility], [facility] Diabetic retinopathy (disorder) Active Problem 06/03/2019 [facility] Drug therapy finding (finding) Active Problem 06/03/2019 [facility], [facility] History of percutaneous transluminal coronary angioplasty (situation) Active Problem 06/03/2019 [facility], [facility] Hyperglycemia due to type 2 diabetes mellitus (disorder) Active Problem 04/03/2019 [facility], [facility] Intraduct carcinoma of breast (disorder) Active Problem 06/03/2019 [facility] Adrenal mass (disorder) Resolved Problem 06/03/2019 [facility], [facility] Medical examinations/reports status (finding) Active Problem 06/03/2019 [facility], [facility] Microalbuminuria (finding) Resolved Problem 06/03/2019 [facility] Mixed hyperlipidemia (disorder) Active Problem 06/03/2019 [facility] Numbness of hand (finding) Active Problem 06/03/2019 [facility] Osteoporosis (disorder) Active Problem 06/03/2019 [facility] Overweight (finding) Active Problem 06/03/2019 [facility] Pain in thumb (finding) Active Problem 06/03/2019 [facility] Screening status (finding) Active Problem 06/03/2019 [facility] Diabetes mellitus type 2 (disorder) Active Problem 04/03/2019 [facility] Mammography abnormal (finding) Active Problem 02/17/2019 [facility] Type II diabetes mellitus without complication (disorder) Active Problem 06/03/2019 [facility] Medications Medication Details Route Status Patient Instructions Ordering Provider Order Date Source NPH Insulin, Human 70 UNT/ML / Regular Insulin, Human 30 UNT/ML Injectable Suspension [Novolin 70/30] 20 units QAM and 15 units QPM, SUB-Q, BID- Meals, # 6 vial, 2 Refill(s), [facility] Active 05/30/2019 [facility] NPH Insulin, Human 70 UNT/ML / Regular Insulin, Human 30 UNT/ML Injectable Suspension [Humulin] 20 units qAM and 15 units qPM, SUB-Q, BID, # 6 vial, 0 Refill(s), Pharmacy: [facility] Active 05/25/2019 Medical Group 3 ML NPH Insulin, Human 70 UNT/ML / Regular Insulin, Human 30 UNT/ML Prefilled Syringe [Humulin 70/30] 20 units QAM and 15 units QPM, SUB-Q, BID- Meals, # 2 box, 1 Refill(s), Pharmacy: [facility], Patient states that Novolin 70/30 is not covered but it is Tier 3 in her insurance formulary Active 05/15/2019 [facility] atorvastatin 20 mg oral tablet 20 mg=1 tab, PO, Bedtime, # 90 tab, 1 Refill(s), Pharmacy: [facility] Active 05/11/2019 [facility] Glipizide 5 MG Oral Tablet =1 tab, PO, Daily, # 90 tab, 1 Refill(s), Pharmacy: [facility] Active 05/11/2019 [facility] NPH Insulin, Human 70 UNT/ML / Regular Insulin, Human 30 UNT/ML Injectable Suspension [Novolin 70/30] 20 units with breakfast and 15 units with dinner, SUB-Q, BID-Meals, # 3 vial, 3 Refill(s), Pharmacy: [facility] Active 05/11/2019 [facility] lisinopril 2.5 mg oral tablet =1 tab, PO, Daily, # 90 ea, 1 Refill(s), Pharmacy: [facility] Active 05/11/2019 [facility] Metformin hydrochloride 1000 MG Oral Tablet 1,000 mg=1 tab, PO, BID, # 180 tab, 1 Refill(s), Pharmacy: [facility] Active 05/11/2019 [facility] Metformin hydrochloride 1000 MG Oral Tablet 1,000 mg=1 tab, PO, BID, X 90 day, # 180 tab, 1 Refill(s) Inactive 05/11/2019 [facility] lisinopril 2.5 mg oral tablet =1 tab, PO, Daily, # 90 ea, 1 Refill(s) Inactive 05/11/2019 [facility] atorvastatin 20 mg oral tablet 20 mg=1 tab, PO, Bedtime, X 90 day, # 90 tab, 1 Refill(s) Inactive 05/11/2019 [facility] Glipizide 5 MG Oral Tablet =1 tab, PO, Daily, X 90 day, # 90 tab, 1 Refill(s) Inactive 05/11/2019 [facility] NPH Insulin, Human 70 UNT/ML / Regular Insulin, Human 30 UNT/ML Injectable Suspension [Novolin 70/30] 20 units with breakfast and 15 units with dinner, SUB-Q, BID-Meals, # 3 vial, 3 Refill(s) Inactive 05/11/2019 [facility] DME Prescription Glucometer strips and lancets, MISC, BID, # 100 ea, 5 Refill(s) Active 05/11/2019 [facility] Aspirin (Aspir 81) 81 Mg Tablet.dr, Mg Oral Daily Active 03/30/2019 [facility] Insulin , 20 Subcutaneously Twice Daily Before Meals Active 03/29/2019 [facility] Insul , Active 03/26/2019 [facility] Metformin hydrochloride 1000 MG Oral Tablet 1,000 mg=1 tab, PO, BID, # 180 tab, 1 Refill(s), Pharmacy: [facility] Active 11/29/2018 [facility] lisinopril 2.5 mg oral tablet =1 tab, PO, Daily, # 90 ea, 1 Refill(s), Pharmacy: [facility] Active 11/29/2018 [facility] NPH Insulin, Human 70 UNT/ML / Regular Insulin, Human 30 UNT/ML Injectable Suspension [Novolin 70/30] 20 units with breakfast and 15 units with dinner, SUB-Q, BID-Meals, # 3 vial, 3 Refill(s), Pharmacy: [facility] Active 11/29/2018 [facility] atorvastatin 20 mg oral tablet 20 mg=1 tab, PO, Bedtime, # 90 tab, 1 Refill(s), Pharmacy: [facility] Active 11/29/2018 [facility] Glipizide 5 MG Oral Tablet =1 tab, PO, BID-Meals, # 180 ea, Pharmacy: [facility] Active 11/26/2018 [facility] lisinopril 2.5 mg oral tablet =1 tab, PO, Daily, # 90 ea, 1 Refill(s), Pharmacy: [facility] No Longer Active 09/12/2018 [facility] Metformin hydrochloride 1000 MG Oral [...] vial, 3 Refill(s) No Longer Active 06/19/2018 [facility] Glipizide 5 MG Oral Tablet 5 mg=1 tab, PO, BID-Before Meals, # 180 tab, 1 Refill(s) No Longer Active 06/19/2018 [facility] atorvastatin 20 mg oral tablet 20 mg=1 tab, PO, Bedtime, X 90 day, # 90 tab, 1 Refill(s) No Longer Active 06/19/2018 [facility] lisinopril 2.5 mg oral tablet 2.5 mg=1 tab, PO, Daily, # 90 tab, 1 Refill(s), given to patient Active 02/06/2018 [facility] Glipizide 5 MG Oral Tablet 5 mg=1 tab, PO, BID-Before Meals, # 180 tab, 1 Refill(s), given to patient Active 02/06/2018 [facility] atorvastatin 20 mg oral tablet 20 mg=1 tab, PO, Bedtime, # 90 tab, 1 Refill(s), given to patient Active 02/06/2018 [facility] Metformin hydrochloride 1000 MG Oral Tablet 1,000 mg=1 tab, PO, BID, # 180 tab, 1 Refill(s), given to patient Active 02/06/2018 [facility] Metformin hydrochloride 1000 MG Oral Tablet 1,000 mg=1 tab, PO, BID, # 180 tab, 1 Refill(s) No Longer Active 12/15/2017 [facility] lisinopril 2.5 mg oral tablet 2.5 mg=1 tab, PO, Daily, # 90 tab, 1 Refill(s) Active 10/27/2017 [facility] Glipizide 5 MG Oral Tablet 5 mg=1 tab, PO, BID-Before Meals, # 180 tab, 1 Refill(s) Active 10/27/2017 [facility] NPH Insulin, Human 70 UNT/ML / Regular Insulin, Human 30 UNT/ML Injectable Suspension [Novolin 70/30] 20 units with breakfast and 15 units with dinner, SUB-Q, BID-Meals, # 3 vial, 3 Refill(s) Active 10/24/2017 [facility] atorvastatin 20 mg oral tablet 20 mg=1 tab, PO, Bedtime, # 90 tab, 1 Refill(s) Active 10/24/2017 [facility] NPH Insulin, Human 70 UNT/ML / Regular Insulin, Human 30 UNT/ML Injectable Suspension [Novolin 70/30] 20 units with breakfast and 15 units with dinner, SUB-Q, BID-Meals, # 3 vial, 3 Refill(s) Active 09/23/2017 [facility] NovoLIN 70/30 PenFill subcutaneous injection 20 units with breakfast and 15 units with dinner, SUB-Q, BID, # 10 mL, 5 Refill(s) Active 09/12/2017 [facility] Metformin hydrochloride 1000 MG Oral Tablet 1,000 mg=1 tab, PO, BID, # 180 tab, 1 Refill(s) Active 09/12/2017 [facility] Metformin hydrochloride 1000 MG Oral Tablet 1,000 mg=1 tab, PO, BID, X 90 day, # 180 tab, 1 Refill(s), Pharmacy: [id number] No Longer Active 09/12/2017 [facility] Atorvastatin Calcium 20 Mg Tablet Bedtime Active [facility] Cephalexin Monohydrate (Keflex) 500 Mg Capsule Three Times A Day Active [facility] Glipizide 5 Mg Tablet Twice A Day Active [facility] Insuln Asp Prt/Insulin Aspart (Novolog Mix 70-30 Flexpen Syrn) 100 Unit/1 Ml Insuln.pen Twice A Day Active [facility] Lisinopril 2.5 Mg Tablet Daily Active [facility] Metformin Hcl 500 Mg Tablet Twice A Day Active [facility] Allergies, Adverse Reactions, Alerts Substance Category Reaction Severity Reaction type Status Date Reported Comments Source No Known Medication Allergies Assertion Drug allergy [facility] Immunizations Immunization Date Given Site Status Last Updated Comments Source pneumococcal 23-valent vaccine<sup>1</sup> 06/15/2012 completed GE Result Comment: pneumovax. Migrated from OBS ; Data migrated from [employer] on 11/11/2015. [facility] Results Order Name Results Value Reference Range Date Interpretation Comments Source Blood leukocytes automated count (number/volume) 9.45 4.8 - 10.8 03/30/2019 [facility] Blood erythrocytes automated count (number/volume) 3.22 3.6 - 5.1 03/30/2019 [facility] Blood hemoglobin measurement (moles/volume) 9.4 12.0 - 16.0 03/30/2019 [facility] Automated blood hematocrit (volume fraction) 28.2 34.2 - 44.1 03/30/2019 [facility] Automated erythrocyte mean corpuscular volume 87.6 81 - 99 03/30/2019 [facility] Automated erythrocyte mean corpuscular hemoglobin (mass per erythrocyte) 29.2 28 - 32 03/30/2019 [facility] Automated erythrocyte mean corpuscular hemoglobin concentration measurement (mass/volume) 33.3 31 - 35 03/30/2019 [facility] RDW BldCo-Rto 13.0 11.7 - 14.4 03/30/2019 [facility] Automated blood platelet count (count/volume) 141 140 - 360 03/30/2019 [facility] Automated blood segmented neutrophil count as percentage of total leukocytes 71.4 38.7 - 80.0 03/30/2019 [facility] Automated blood lymphocyte count as percentage ot total leukocytes 19.8 18.0 - 39.1 03/30/2019 [facility] Automated blood monocyte count as percentage of total leukocytes 7.8 4.4 - 11.3 03/30/2019 [facility] Automated blood eosinophil count as percentage of total leukocytes 0.3 0.0 - 6.0 03/30/2019 [facility] Automated blood basophil count as percentage of total leukocytes 0.1 0.0 - 1.0 03/30/2019 [facility] IM GRANULOCYTES % 0.6 0.0 - 1.0 03/30/2019 [facility] Automated blood neutrophil count 6.7 2.1 - 6.9 03/30/2019 [facility] Blood lymphocytes count (number/volume) 1.9 1.0 - 3.2 03/30/2019 [facility] Blood monocytes automated count (number/volume) 0.7 0.2 - 0.8 03/30/2019 [facility] Automated blood eosinophil count 0.0 0.0 - 0.4 03/30/2019 [facility] Automated blood basophil count (count/volume) 0.0 0.0 - 0.1 03/30/2019 [facility] Absolute Immature Granulocyte (auto 0.06 0 - 0.1 03/30/2019 [facility] Serum or plasma sodium measurement (moles/volume) 138 136 - 145 03/30/2019 [facility] Serum or plasma potassium measurement (moles/volume) 4.1 3.5 - 5.1 03/30/2019 [facility] Serum or plasma chloride measurement (moles/volume) 104 98 - 107 03/30/2019 [facility] Serum or plasma carbon dioxide, total measurement (moles/volume) 26 22 - 29 03/30/2019 [facility] Serum or plasma anion gap 12.1 8 - 16 03/30/2019 [facility] Serum or plasma urea nitrogen measurement (mass/volume) 14 7 - 26 03/30/2019 [facility] Serum or plasma creatinine measurement (mass/volume) 0.69 0.57 - 1.11 03/30/2019 [facility] Serum or plasma urea nitrogen/creatinine mass ratio 20 6 - 25 03/30/2019 [facility] Estimated glomerular filtration rate (GFR) determination > 60 60 03/30/2019 [facility] Glucose measurement 104 74 - 118 03/30/2019 [facility] Serum or plasma calcium measurement (mass/volume) 8.8 8.4 - 10.2 03/30/2019 [facility] Serum or plasma total bilirubin measurement (mass/volume) 0.4 0.2 - 1.2 03/30/2019 [facility] Aspartate Amino Transf (AST/SGOT) 14 5 - 34 03/30/2019 [facility] Serum or plasma alanine aminotransferase measurement (enzymatic activity/volume) 11 0 - 55 03/30/2019 [facility] Serum or plasma protein measurement (mass/volume) 5.9 6.5 - 8.1 03/30/2019 [facility] Serum or plasma albumin measurement (mass/volume) 3.2 3.5 - 5.0 03/30/2019 [facility] Plasma globulin measurement (mass/volume) 2.7 2.3 - 3.5 03/30/2019 [facility] Serum or plasma albumin/globulin mass ratio 1.2 0.8 - 2.0 03/30/2019 [facility] Serum or plasma alkaline phosphatase measurement (enzymatic activity/volume) 47 40 - 150 03/30/2019 [facility] Capillary blood glucose measurement by glucometer (mass/volume) 246 70 - 120 03/29/2019 [facility] Pathology Reports No Data Provided for This Section Diagnostic Reports Report Value Date Source Stereo Breast BX Uni /Clip Primary [...] exams dated: 01/11/2019 mammogram, 01/02/2019 mammogram - [facility], 11/18/2014 mammogram, 01/17/2013 mammogram - [facility], 07/09/2011 mammogram - [facility], and 03/05/2009 mammogram - [facility]. A stereotactic guided biopsy was performed [...] breast. The abnormality was approached from the late ral aspect using an upright digital mammography unit. [...] imaging interpreted on a dedicated mammography workstation demonstrates the clip at the targeted area and partial removal of the calcifications. The specimens were sent to the laboratory for pathological analysis. IMPRESSION: STEREOTACTIC GUIDED BIOPSY MALIGNANT Stereotactic guided biopsy of the area of grouped calcifications in the right breast at 9 o'clock posterior depth was successful with no apparent post procedure complications. Pathology indicates malignant results - 'DUCTAL CARCINOMA IN SITU, NUCLEAR GRADE 2, CRIBRIFORM AND MICROPAPILLARY TYPES WITH COMEDONECROSIS AND CALCIFICATIONS'. Pathology results are concordant with imaging findings. A surgical consultation, a surgical excision, a radiation oncology consultation, and a medical oncology consultation are recommended. Please note, the calcifications are loosely grouped and measure approximately 4-5 cm. A phone call was made to the physician of the above results at 1340 hrs 02/16/19. This exam was interpreted at [id number] for [facility] [place]. Darby nevarez/:02/16/2019 13:43:40 Industrial Safety Engineer(s): Dianne Bone, [facility] 02/15/2019 [facility] Breast Mammo Diag UNI incl CAD MA UNILATERAL RIGHT DIGITAL DIAGNOSTIC MAMMOGRAM WITH CAD: 01/11/2019 CLINICAL: R92.8/ Other Abnormal And Inconclusive Findings On Diagnostic Imaging Of Breast. Current study was evaluated with a Computer Aided Detection (CAD) system. COMPARISON:Comparison is made to exams dated: 01/02/2019 mammogram - [facility] and 11/18/2014 mammogram - [facility]. TECHNIQUE: Mammographic views were obtained using digital [...] is recommended. This exam was interpreted at [id number] for IGNACIO Justice. Professional services are provided by the [facility] Division of Diagnostic Imaging. Best Tello M.D. cm/penrad:01/11/2019 14:16:53 Industrial Safety Engineer(s): Nemo Borges RT(R)(M), [facility] letter sent: BI-RADS 4/5 Mammogram BI-RADS: 4b Suspicious abnormality - intermediate suspicion of malignancy 01/11/2019 [facility] Breast Mammo Scrn KESHAWN incl CAD MA BILATERAL DIGITAL SCREENING MAMMOGRAM WITH CAD: 01/02/2019 Current study was evaluated with a Computer Aided Detection (CAD) system. COMPARISON:Comparison is made to exams dated: 11/18/2014 mammogram, 01/17/2013 mammogram - [facility], 07/09/2011 mammogram - [facility], and 03/05/2009 mammogram - [facility]. TECHNIQUE: Mammographic views were obtained using [...] are recommended. This exam was interpreted at [id number] for IGNACIO Rasmussen 15. Professional services are provided by the [facility] Division of Diagnostic Imaging. Best Tello M.D., cm/penrad:01/02/2019 11:03:20 Industrial Safety Engineer(s): Neva Lopez RT(R)(M), [facility] letter sent: BI-RADS 0 Mammogram BI-RADS: 0 Indeterminate 01/02/2019 [facility] Bone Density [employer] MA BONE [...] for fracture. This exam was interpreted at [id number] for IGNACIO Rasmussen 15. Best Tello M.D., cm/gabriele:01/02/2019 11:01:03 Industrial Safety Engineer(s): Nemo DAVILA)(M), [facility] 01/02/2019 [facility] Consultation Notes No Data Provided for This Section Discharge Summaries No Data Provided for This Section History and Physicals No Data Provided for This Section Vital Signs Vital Sign Value Date Comments Source Systolic (mm Hg) 130 05/11/2019 [facility] Diastolic (mm Hg) 72 05/11/2019 [facility] Respitory Rate 16 05/11/2019 [facility] Temperature Oral (F) 98.3 F 05/11/2019 [facility] Heart Rate 85 05/11/2019 [facility] Systolic (mm Hg) 161 05/11/2019 [facility] Diastolic (mm Hg) 80 05/11/2019 [facility] Weight 61.818 05/11/2019 [facility] Height 147.32 cm 05/11/2019 [facility] BMI Calculated 28.48 05/11/2019 [facility] Heart Rate 82 02/20/2019 [facility] Respitory [...] Group Temperature Oral (F) 97.8 F 06/19/2018 [facility] Systolic (mm Hg) 173 06/19/2018 [facility] Diastolic (mm Hg) 85 06/19/2018 [facility] Weight 63.352 02/06/2018 [facility] BMI Calculated 29.19 02/06/2018 [facility] Systolic (mm Hg) 143 02/06/2018 [facility] Diastolic (mm Hg) 71 02/06/2018 [facility] Temperature Oral (F) 98.7 F 02/06/2018 [facility] Heart Rate 87 02/06/2018 [facility] Respitory Rate 16 02/06/2018 [facility] Height 147.32 cm 02/06/2018 [facility] Weight 63.182 10/24/2017 [facility] Height 147.32 cm 10/24/2017 [facility] BMI Calculated 29.11 10/24/2017 [facility] Systolic (mm Hg) 161 10/24/2017 [facility] Diastolic (mm Hg) 87 10/24/2017 [facility] Temperature Oral (F) 98.3 F 10/24/2017 [facility] Respitory Rate 16 10/24/2017 [facility] Heart Rate 93 10/24/2017 [facility] Encounters Location Location Details Encounter Type Encounter Number Reason For Visit Attending Provider ADM Date DC Date Status Source [facility] Outpatient Imaging [facility] Services [id number] Bita Lockett 11/18/2014 11/19/2014 [facility] [place] Outpatient [id number] BITA LOCKETT 02/21/2017 [facility] [id number] BITA LOCKETT 03/21/2017 Active [facility] Out[facility] [id number] BITA LOCKETT 05/30/2017 Active [facility] Outpatient [id number] BITA LOCKETT 06/10/2017 Active [facility] Outpatient [id number] BITA LOCKETT 06/20/2017 Active [facility] Out[facility] [id number] BITA LOCKETT 07/04/2017 Active [facility] [place] Phone Message [id number] 09/12/2017 09/13/2017 Medical Group [facility] Phone Message [id number] 09/12/2017 09/14/2017 Medical Group [facility] Phone Message [id number] 09/21/2017 09/23/2017 [facility] Outpatient [id number] BITA HAQUECEDO 10/17/2017 Active [facility] Ambulatory Pre-Reg [id number] Bita Lockett 10/17/2017 10/17/2017 [facility] Outpatient [id number] BITA HAQUECEDO 10/24/2017 Active [facility] [id number] Bita Haquecedo 10/24/2017 10/25/2017 [facility] Phone Message [id number] 02/01/2018 02/03/2018 [facility] Outpatient [id number] BITA LOCKETT 02/06/2018 Active [facility] [id number] Bita Lockett 02/06/2018 02/07/2018 [facility] Outpatient [id number] BITA HAQUECEDO 06/19/2018 Active [facility] Primary [facility] Outpatient [id number] Bita Haquecedo 06/19/2018 06/20/2018 [facility] Phone Message [id number] 09/12/2018 09/14/2018 [facility] Phone Message [id number] 11/26/2018 11/28/2018 [facility] Phone Message [id number] 11/27/2018 11/29/2018 [facility] Phone Message [id number] 11/29/2018 12/01/2018 [facility] Outpatient [id number] BITA LOCKETT 12/04/2018 Active [facility] Primary Care [facility] [id number] Bitakathi HaqueLockett 12/04/2018 12/05/2018 [facility] Phone Message [id number] 12/05/2018 12/07/2018 [facility] [id number] Bita Lockett 01/02/2019 01/03/2019 [facility] Phone Message [id number] 01/04/2019 01/05/2019 [facility] [id number] Bita Lockett 01/11/2019 01/12/2019 [facility] Phone Message [id number] 01/11/2019 01/13/2019 [facility] Phone Message [id number] 01/16/2019 01/18/2019 [facility] Outpatient [id number] Bita Lockett 02/15/2019 02/16/2019 [facility] Primary [facility] Phone Message [id number] 02/19/2019 02/20/2019 [facility] Outpatient [id number] Bita Garciao 02/20/2019 Active [facility] Primary [facility] Outpatient [id number] Bita Lockett 02/20/2019 02/21/2019 [facility] Outpatient [id number] BITA GARCIAO 03/02/2019 Active [facility] Phone Message [id number] 03/07/2019 03/09/2019 [facility] Primary [facility] Ambulatory Pre-Reg [id number] Bita Haquecedo 03/12/2019 03/12/2019 [facility] Primary [facility] Phone Message [id number] 03/23/2019 03/25/2019 [facility] Outpatient [id number] Bita Garciao 03/26/2019 Active [facility] Primary [facility] Ambulatory Pre-Reg [id number] Btia Lockett 03/26/2019 03/26/2019 [facility] Discharged Inpatient (obs) [id number] GENNA KHALIL MD 03/29/2019 03/30/2019 [facility] Outpatient [id number] Bita Haquecedo 05/11/2019 Active [facility] Primary [facility] Outpatient [id number] Bita Lockett 05/11/2019 05/12/2019 [facility] Phone Message [id number] 05/15/2019 05/17/2019 [facility] Phone Message [id number] 05/23/2019 05/25/2019 [facility] Phone Message [id number] 05/24/2019 05/26/2019 [facility] Phone Message [id number] 05/30/2019 06/01/2019 [facility] Procedures Procedure Code Date Perfomer Comments Source Simple mastectomy of right breast [id number] 03/29/2019 [facility] X-ray of chest, two views [id number] 03/26/2019 [facility] Mastectomy of right breast<sup>1</sup> [id number] 2019 at [facility] Diabetic retinal eye exam<sup>1</sup> [id number] 02/19/2019 Diabetic retinopathy with macular edema [facility] Diabetic retinal eye exam<sup>2</sup> [id number] 02/19/2019 Diabetic retinopathy with macular edema [facility] Biopsy of breast<sup>2</sup> [id number] 02/15/2019 Diagnosis Right breast, stereotactic core biopsy 9:00 aspect - DUCTAL CARCINOMA IN SITU, NUCLEAR GRADE 2, CRIBRIFORM AND MICROPAPILLARY TYPES WITH COMEDONECROSIS AND CALCIFICATIONS [facility] Biopsy of breast<sup>1</sup> [id number] 02/15/2019 Diagnosis Right breast, stereotactic core biopsy 9:00 aspect - DUCTAL CARCINOMA IN SITU, NUCLEAR GRADE 2, CRIBRIFORM AND MICROPAPILLARY TYPES WITH COMEDONECROSIS AND CALCIFICATIONS [facility] Biopsy of breast<sup>3</sup> [id number] 02/15/2019 Diagnosis Right breast, stereotactic core biopsy 9:00 aspect - DUCTAL CARCINOMA IN SITU, NUCLEAR GRADE 2, CRIBRIFORM AND MICROPAPILLARY TYPES WITH COMEDONECROSIS AND CALCIFICATIONS [facility] Bone density scan<sup>3</sup> [id number] 01/02/2019 IMPRESSION: OSTEOPENIA Patient is at medium risk for fracture. [facility] Screening mammography<sup>4</sup> [id number] 01/02/2019 IMPRESSION: INCOMPLETE: NEEDS ADDITIONAL IMAGING EVALUATION RECOMMENDATION:The linear heterogeneous calcifications in the right breast are indeterminate. Magnification views are recommended. [facility] Bone density scan<sup>1</sup> [id number] 01/02/2019 IMPRESSION: OSTEOPENIA Patient is at medium risk for fracture. [facility]<sup>2</sup> [id number] 01/02/2019 IMPRESSION: INCOMPLETE: NEEDS ADDITIONAL IMAGING EVALUATION RECOMMENDATION:The linear heterogeneous calcifications in the right breast are indeterminate. Magnification views are recommended. [facility] Bone density scan<sup>2</sup> [id number] 01/02/2019 IMPRESSION: OSTEOPENIA Patient is at medium risk for fracture. [facility] Screening mammography<sup>3</sup> [id number] 01/02/2019 IMPRESSION: INCOMPLETE: NEEDS ADDITIONAL IMAGING EVALUATION RECOMMENDATION:The linear heterogeneous calcifications in the right breast are indeterminate. Magnification views are recommended. [facility] Bone density scan<sup>4</sup> [id number] 01/02/2019 IMPRESSION: OSTEOPENIA Patient is at medium risk for fracture. [facility] Screening mammography<sup>5</sup> [id number] 01/02/2019 IMPRESSION: INCOMPLETE: NEEDS ADDITIONAL IMAGING EVALUATION RECOMMENDATION:The linear heterogeneous calcifications in the right breast are indeterminate. Magnification views are recommended. [facility] Diabetic retinal eye exam<sup>5</sup> [id number] 12/04/2018 Right Eye Findings: Negative for Diabetic Retinopathy. Other: Suspected Cataract Left Eye Findings: Diabetic Retinopathy: Mild Macular Edema: Mild Other: Suspected Cataract [facility] Diabetic retinal eye exam<sup>3</sup> [id number] 12/04/2018 Right Eye Findings: Negative for Diabetic Retinopathy. Other: Suspected Cataract Left Eye Findings: Diabetic Retinopathy: Mild Macular Edema: Mild Other: Suspected Cataract [facility] Diabetic retinal eye exam<sup>4</sup> [id number] 12/04/2018 Right Eye Findings: Negative for Diabetic Retinopathy. Other: Suspected Cataract Left Eye Findings: Diabetic Retinopathy: Mild Macular Edema: Mild Other: Suspected Cataract [facility] Diabetic retinal eye exam<sup>6</sup> [id number] 12/04/2018 Right Eye Findings: Negative for Diabetic Retinopathy. Other: Suspected Cataract Left Eye Findings: Diabetic Retinopathy: Mild Macular Edema: Mild Other: Suspected Cataract [facility] PTCA - Percutaneous transluminal coronary angioplasty [id number] 10/10/2014 [facility] Screening mammography [id number] 10/10/2014 [facility] Pneumococcal vaccination<sup>6</sup> [id number] 06/15/2012 Pneum[facility] Pneumococcal vaccination<sup>1</sup> [id number] 06/15/2012 Pneumovax [facility] Pneumococcal vaccination<sup>2</sup> [id number] 06/15/2012 Pneum[facility]ax [facility] Pneumococcal vaccination<sup>4</sup> [id number] 06/15/2012 [facility] Pneumococcal vaccination<sup>5</sup> [id number] 06/15/2012 [facility]neum[facility] Pneumococcal vaccination<sup>7</sup> [id number] 06/15/2012 [facility] Cholecystectomy [id number] 10/10/1966 [facility] Assessment and Plan No Data Provided for This Section Plan of Care Plan of Care Date Source Discharge Date 03/30/19 4:01pm Disposition HOME, SELF-CARE Instructions/Education Provided Post Operative Pain Prescriptions See Medication Section Referrals GENNA KHALIL MD (Surgery) Order Date: 04/03/2019 Entered Date: 03/30/2019 3:29pm Address: [address] [place] [id number] Additional Instructions/Education OUT OF BED, WALK , NO HEAVY LIFTING REULAR DIET TOLERATED PRESCRIPTION SENT WITH PATIENT: KEFLEX (ANTIBIOTIC) CALL OFFICE AND MAKE A FOLLOW UP APPOINTMENT ON WEDNESDAY APRIL 03, 2019 EMPTY JOSEFINA DRAIN AND KEEP RECORD DEMONSTRATED SPONGE BATH ONLY, NO SHOWERS AT THIS TIME, DO NOT REMOVE DRESSING, DO NOT GET INCISION WET, DR KHALIL WILL CHANGE DRESSING AT FOLLOW UP APPOINTMENT ABBIE CHAVIS 03/30/2019 [facility] Social History Social History Date Source Social History Problem Response Recorded Date/Time Onset Date Status Hx Psychiatric Problems No 12/13/2014 11:32pm Not Applicable Not Applicable 03/30/2019 [facility] Social History TypeResponse Substance Abuse Use: None. Exercise Exercise type: none. Employment/School Status: Retired. Alcohol Past Smoking Status Former smoker; Type: Cigarettes; Exposure to Tobacco Smoke None; Cigarette Smoking Last 365 Days No; Reg Smoking Cessation Counseling No; Stopped at age: 22; entered on: 12/04/18 02/21/2017 [facility] Social History TypeResponse Substance Abuse Use: None. Exercise Exercise type: none. Employment/School Status: Retired. Alcohol Past Smoking Status Former smoker; Type: Cigarettes; Exposure to Tobacco Smoke None; Cigarette Smoking Last 365 Days No; Reg Smoking Cessation Counseling No; Stopped at age: 22; entered on: 12/04/18 02/21/2017 [facility] Social History TypeResponse Alcohol Past Employment/School Status: Retired. Exercise Exercise type: none. Substance Abuse Use: None. Smoking Status Former smoker; Type: Cigarettes; Exposure to Tobacco Smoke None; Cigarette Smoking Last 365 Days No; Reg Smoking Cessation Counseling No; Stopped at age: 22; entered on: 05/11/19 02/21/2017 [facility] Family History No Data Provided for This Section Advance Directives Order Name Results Value Date Source Advance Directives Advance Directives Directive Response Recorded Date/Time Does the patient have an advance directive? Yes 03/29/19 1:34pm If yes, is advance directive on file with [facility]? Yes 03/29/19 1:34pm If not on file with [facility] will patient provide a copy? Yes 02/10/16 3:55am Do you have a Directive to Physician? No 03/26/19 8:48am Do you have a Medical Power of Senior Dentist? Yes 03/26/19 8:48am Do you have an out of hospital Do Not Resuscitate Order? No 03/26/19 8:48am Do you have any special needs we should be aware of? No 03/26/19 8:48am Do you have a support person here with you today? Yes 03/26/19 8:48am Did patient receive Notice of Privacy Practices? Yes 03/26/19 8:48am Did patient receive patient rights and responsibilities? Yes 03/26/19 8:48am 03/30/2019 [facility] Functional Status No Data Provided for This Section
--- OUTSIDE RECORDS SUMMARY | 2019-06-06 08:41 | XMS REPORT | Clinical Summary ---
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 Name Role Phone Asked, No Pcp PCP [...] 1998 Former Smoker Smokeless Tobacco: Never Used Drinks/Week oz/Week Comments Alcohol Use No Sex Assigned at Date Recorded Not [...] INFLUENZA VACCINE 05/10/2019 Results Not on fileafter 06/05/2018 Insurance Type Payer Benefit Subscriber ID Effective Phone Address Plan / Dates Group Medicare MEDICARE MEDICARE xxxxxxxxxx [id number] BARCENAS, PART A AND resent [place] Commercial COMMERCIAL MISC MISC xxxxxxxxxx [id number] COMMERCIAL resent Advance Directives For more information, please contact: [phone] Patient Project Scheduler Explanation Type Date Recorded Advance Directives, 12/24/2014 8:21 AM Living Will and Medical Power of Sas Bi Developer
--- OUTSIDE RECORDS SUMMARY | 2019-06-06 08:42 | XMS REPORT | Summary of Care ---
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) S/P PTCA Active (percutaneous transluminal coronary angioplasty)(Confirm ed) 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) Right adrenal Resolved mass(Confirmed) Medicare annual Active wellness visit, subsequent(Confirmed ) Microalbuminuria(Con Resolved firmed) Mixed Active hyperlipidemia(Confi rmed) Numbness of right Active thumb(Confirmed) Osteoporosis(Confirm Active ed) Overweight(Confirmed Active ) Pain of right Active thumb(Confirmed) Screening for Active diabetic retinopathy(Confirme d) Type 2 diabetes Active mellitus without complications(Confir med) Allergies, Adverse Reactions, Alerts No Known Medication Allergies Medications No data available for this section Results No data available for this section Immunizations Given and Recorded Vaccine Date Status Refusal Reason pneumococcal 23-valent vaccine1 06/15/12 Given 1Result Comment: pneumovax. Migrated from OBS ; Data migrated from [employer] on 11/11/2015. Procedures Procedure Date Related Diagnosis Body Site Status Mastectomy of right breast1 03/2019 Completed Diabetic retinal eye exam2 02/19/19 Completed Biopsy of breast3 02/15/19 Completed Bone density scan4 01/02/19 Completed Screening mammography5 01/02/19 Completed Diabetic retinal eye exam6 12/04/18 Completed PTCA - Percutaneous transluminal coronary 2015 Completed angioplasty Pneumococcal vaccination7 06/15/12 Completed [facility]olecyst[facility] 2Diabetic retinopathy with macular edema 3Diagnosis Right breast, stereotactic core biopsy 9:00 aspect - DUCTAL CARCINOMA IN SITU, NUCLEAR GRADE 2, CRIBRIFORM AND MICROPAPILLAR Y TYPES WITH COMEDONECROSIS AND CALCIFICATIONS 4IMPRESSION: OSTEOPENIA Patient is at medium risk for fracture. 5IMPRESSION: INCOMPLETE: NEEDS ADDITIONAL IMAGING EVALUATION RECOMMENDATION:The linear heterogeneous calcifications in the right breast are i ndeterminate. Magnification views are recommended. 6Right Eye Findings: Negative for Diabetic Retinopathy. Other: Suspected Cataract Left Eye Findings: Diabetic Retinopathy: Mild Macular Edema: Mild Other: Suspected Cataract 7Pneumovax Social History Social History Type Response Alcohol Past Employment/School Status: Retired. Exercise Exercise type: none. Substance Abuse Use: None. Smoking Status Former smoker; Type: Cigarettes; Exposure to Tobacco Smoke None; Cigarette Smoking Last 365 Days No; Reg Smoking Cessation Counseling No; Stopped at age: 22; entered on: 05/11/19 Assessment and Plan No data available for this section
--- OUTSIDE RECORDS SUMMARY | 2019-06-06 08:42 | XMS REPORT | Summary of Care ---
Author Author [facility] Organization [facility] Address Unknown Phone Unavailable Encounter HQ Danelle_nati(FIN) [id number] Date(s): 05/11/19 - 05/11/19 [facility] [address] [facility] [address] [place] [address]- Discharge Disposition: Home or Self Care Attending Physician: Anita Cordoba MD Vital Signs Most recent to 1 2 oldest [Reference Range]: Height 147.32 cm (05/11/19 3:49 PM) Temperature Oral 98.3 DegF [96.4-99.1 DegF] (05/11/19 3:49 PM) Blood Pressure 130/72 mmHg 161/80 mmHg [90-140/60-90 mmHg] (05/11/19 4:30 PM) *HI* (05/11/19 3:49 PM) Respiratory Rate 16 BRMIN [14-20 BRMIN] (05/11/19 3:49 PM) Peripheral Pulse 85 bpm Rate [60-100 bpm] (05/11/19 3:49 PM) Weight 61.818 kg (05/11/19 3:49 PM) Body Mass Index 28.48 m2 (05/11/19 3:49 PM) Problem List Condition Effective Dates Status Health Status Informant Coronary artery Active disease(Confirmed) Benign essential Active hypertension(Confirm ed) BMI Active 28.0-28.9,adult(Conf irmed) DM Active retinopathy(Confirme d) 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 Start Date: 05/11/19 Stop Date: 11/07/19 Status: Ordered atorvastatin 20 mg oral tablet 20 mg=1 tab, PO, Bedtime, X 90 day, # 90 tab, 1 Refill(s) Start Date: 05/11/19 Stop Date: 05/11/19 Status: Completed DME Prescription Glucometer strips and lancets, MISC, BID, # 100 ea, 5 Refill(s) Start Date: 05/11/19 Status: Ordered DME Prescription Onetouch Verio Kit, MISC, BID, # 1 ea, 0 Refill(s) Start Date: 05/11/19 Status: Ordered glipiZIDE 5 mg oral tablet =1 tab, PO, Daily, X 90 day, # 90 tab, 1 Refill(s) Start Date: 05/11/19 Stop Date: 05/11/19 Status: Completed glipiZIDE 5 mg oral tablet =1 tab, PO, Daily, # 90 tab, 1 Refill(s), Pharmacy: [facility] Start Date: 05/11/19 Stop Date: 11/07/19 Status: Ordered lisinopril 2.5 mg oral tablet =1 tab, PO, Daily, # 90 ea, 1 Refill(s), Pharmacy: [facility] Start Date: 05/11/19 Status: Ordered lisinopril 2.5 mg oral tablet =1 tab, PO, Daily, # 90 ea, 1 Refill(s) Start Date: 05/11/19 Stop Date: 05/11/19 Status: Completed metFORMIN 1000 mg oral tablet 1,000 mg=1 tab, PO, BID, # 180 tab, 1 Refill(s), Pharmacy: [facility] Start Date: 05/11/19 Stop Date: 11/07/19 Status: Ordered metFORMIN 1000 mg oral tablet 1,000 mg=1 tab, PO, BID, X 90 day, # 180 tab, 1 Refill(s) Start Date: 05/11/19 Stop Date: 05/11/19 Status: Completed NovoLIN 70/30 20 units with breakfast and 15 units with dinner, SUB-Q, BID-Meals, # 3 vial, 3 Refill(s) Start Date: 05/11/19 Stop Date: 05/11/19 Status: Completed NovoLIN 70/30 20 units with breakfast and 15 units with dinner, SUB-Q, BID-Meals, # 3 vial, 3 Refill(s), Pharmacy: [facility] Start Date: 05/11/19 Status: Ordered Results No data available for this section Immunizations Given and Recorded Vaccine Date Status Refusal Reason pneumococcal 23-valent vaccine1 06/15/12 Given 1Result Comment: pneumovax. Migrated from [employer] ; Data migrated from [employer] on 11/11/2015. Procedures Procedure Date Related Diagnosis Body Site Status Mastectomy of right breast1 03/2019 Completed Diabetic retinal eye exam2 02/19/19 Completed Biopsy of breast3 02/15/19 Completed Bone density scan4 01/02/19 Completed Screening mammography5 01/02/19 Completed Diabetic retinal eye exam6 12/04/18 Completed PTCA - Percutaneous transluminal coronary 2014 Completed angioplasty Pneumococcal vaccination7 06/15/12 Completed Cholecystectomy 1967 Completed 1at [facility] 2Diabetic retinopathy with macular edema 3Diagnosis Right [...] 7Pneumovax Social History Social History Type Response Substance [...]
--- OUTSIDE RECORDS SUMMARY | 2019-06-06 08:42 | XMS REPORT | Summary of Care ---
Author Author [facility] Organization [facility] Address Unknown Phone Unavailable Encounter HQ Arie(FIN) [id number] Date(s): 05/15/19 - 05/16/19 [facility] [address] [facility] [address] [place] [address]- [phone] Vital Signs No data available for this section Problem List Condition Effective Dates Status Health Status Informant Coronary artery Active disease(Confirmed) Benign essential Active hypertension(Confirm ed) BMI Active 28.0-28.9,adult(Conf irmed) DM Active retinopathy(Confirme d) [facility] (current) Active 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(Confirmed) S/P PTCA [...] Reactions, Alerts No Known Medication Allergies Medications HumuLIN 70/30 KwikPen 70 units-30 units/mL subcutaneous suspension 20 units QAM and 15 units QPM, SUB-Q, BID-Meals, # 2 box, 1 Refill(s), Pharmacy: [facility], Patient states that Novolin 70/30 is not cov ered but it is Tier 3 in her insurance formulary Start Date: 05/15/19 Status: Ordered Results No data available for this section Immunizations Given and Recorded Vaccine Date Status Refusal Reason pneumococcal 23-valent vaccine1 06/15/12 Given 1Result Comment: pneumovax. Migrated from OBS ; Data migrated from [employer] on 11/11/2015. Procedures Procedure Date Related Diagnosis [...]
--- OUTSIDE RECORDS SUMMARY | 2019-06-06 08:43 | XMS REPORT | Summary of Care ---
Author Author [facility] Organization [facility] Address Unknown Phone Unavailable Encounter HQ Danelle_nati(FIN) [id number] Date(s): 05/30/19 - 05/31/19 [facility] [address] [facility] [address] [place] [address]- Vital Signs No data available for this section Problem List Condition Effective Dates Status Health Status Informant Coronary artery Active disease(Confirmed) Benign essential Active hypertension(Confirm ed) BMI Active 28.0-28.9,adult(Conf irmed) DM Active retinopathy(Confirme d) long-term (current) Active 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(Confirmed) S/P PTCA [...] Reactions, Alerts No Known Medication Allergies Medications NovoLIN 70/30 20 units QAM and 15 units QPM, SUB-Q, BID-Meals, # 6 vial, 2 Refill(s), Pharmacy : [facility] Start Date: 05/30/19 Status: Ordered Results No data available for this section Immunizations Given and Recorded Vaccine Date Status Refusal Reason pneumococcal 23-valent vaccine1 06/15/12 Given 1Result Comment: pneumovax. Migrated from OBS ; Data migrated from [employer] on 11/11/2015. Procedures Procedure Date Related Diagnosis Body Site Status Mastectomy of right breast1 03/2019 Completed Diabetic retinal eye exam2 02/19/19 Completed Biopsy of breast3 02/15/19 Completed Bone density scan4 01/02/19 Completed Screening mammography5 01/02/19 Completed Diabetic retinal eye exam6 12/04/18 Completed PTCA - Percutaneous transluminal coronary 2014 Completed angioplasty Pneumococcal vaccination7 06/15/12 Completed Cholecystectomy 1967 Completed 1at [facility] 2Diabetic retinopathy with macular edema 3Diagnosis [...]
--- OUTSIDE RECORDS SUMMARY | 2019-06-06 08:43 | XMS REPORT | Summary of Care ---
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 Migrated from OBS ; Data migrated from [employer] on 11/11/2015. Procedures Procedure Date Related Diagnosis [...]
--- OUTSIDE RECORDS SUMMARY | 2019-06-06 08:43 | XMS REPORT | Summary of Care ---
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 Migrated from OBS ; Data migrated from [employer] on 11/11/2015. Procedures Procedure Date Related Diagnosis Body Site Status Mastectomy of right breast1 03/2019 Completed Diabetic retinal eye exam2 02/19/19 Completed Biopsy of breast3 02/15/19 Completed Bone density scan4 01/02/19 Completed Screening mammography5 01/02/19 Completed Diabetic retinal eye exam6 12/04/18 Completed PTCA - Percutaneous transluminal coronary 2014 Completed angioplasty Pneumococcal vaccination7 06/15/12 Completed Cholecystectomy 1967 Completed 1at [facility] 2Diabetic retinopathy with macular edema 3Diagnosis Right [...]
--- NOTE | 2019-06-06 13:10 | Operative Report ---
DATE OF PROCEDURE: 06/06/2019 SURGEON: Dayron Reyna MD PREOPERATIVE DIAGNOSIS: Carcinoma of the right breast. POSTOPERATIVE DIAGNOSIS: Carcinoma of the right breast. OPERATION PERFORMED: Right axillary lymph node biopsy with preoperative mapping. ANESTHESIA: General. COMPLICATIONS: None. ESTIMATED BLOOD LOSS: Minimal. DESCRIPTION OF PROCEDURE: With the patient lying in bed in the supine position, under good general anesthesia, after having undergone a sentinel node mapping in the right axilla, the right breast and axilla were prepped with Betadine solution and draped in the usual manner. An incision was made at the base of the right axilla, carried down through the subcutaneous tissue down to the fascia. The fascia was then opened and using the Neoprobe, the sentinel node was easily identified. The whole area was then totally and completely encircled and sentinel node with the fat packet around was removed and sent for pathological examination. All bleeding points and lymphatics were ligated with 2-0 Vicryl. There was no other hot spots in the axilla identified. The subcutaneous tissue and superficial fascia were then reapproximated with 3-0 Vicryl, and the skin was closed with subcuticular 5-0 Vicryl. Benzoin and Steri-Strips were applied. A dressing was placed. Sponge, lap, and needle counts were correct. The patient tolerated the procedure well and returned to the recovery room in stable condition. Dayron Reyna MD JLR/MODL /[id number]
[2019-06-06 13:35] VITALS: BP 169/92
--- NOTE | 2019-06-06 19:05 | Diagnostic Imaging Report ---
Lymphoscintigraphy Reason for Exam: Right breast cancer; scheduled for sentinel lymph node biopsy Radiopharmaceutical: Tc-99m filtered sulfur colloid 529 microcuries Report: The patient is s/p mastectomy. The radiotracer was given as two separate injections intradermally in the mid-clavicular line, one above and one below the surgical scar. A single focal area of tracer accumulation is seen in the right axilla. No accumulation of tracer is seen in the midline of the chest or in the neck. Impression: A single sentinel lymph node is identified in the right axilla. Signed by: Dr. Vangie Engel M.D. on 06/06/2019 7:02 PM
== END | disposition home or self-care (01) ==
LOC: OR 08:24
PROVIDERS: ATTEND Surgery
DX: C50.911 Malignant neoplasm of unspecified site of right female breast (principal); Z90.11 Acquired absence of right breast and nipple; I10 Essential (primary) hypertension; E78.5 Hyperlipidemia, unspecified; I25.10 Atherosclerotic heart disease of native coronary artery without angina pectoris; E11.9 Type 2 diabetes mellitus without complications; Z01.812 Encounter for preprocedural laboratory examination; Z79.84 Long term (current) use of oral hypoglycemic drugs; Z79.82 Long term (current) use of aspirin; Z79.4 Long term (current) 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; Z98.61 Coronary angioplasty status
CPT/HCPCS: 36415; 38525; 38900; 78195; 80048; 85025; 88305; 88342; A9541; J0690; J1100; J2001; J2250; J2405; J2704; J2765; J3010

== ENCOUNTER 2019-08-31 10:00 | Emergency (ER) | payer MEDICARE, OTHER ==
[~2019-08-31] VITALS: Ht 269.2 cm; Wt 60.3 kg
[~2019-08-31 10:00] MED LIST changes: -BUPIVACAINE 0.25%/EPI 30ML SDV INJ ONE; -BUPIVACAINE/EPINEPHRINE 0.25% 10 ML SDV INJ ONE; -CEFAZOLIN SOD 1 GM VIAL ONE; -DEXAMETHASONE SOD PHOS INJ 4 MG/ML VIAL ONE; -ESMOLOL HCL 100MG/10ML 10 MG/ML VIAL ONE; -FENTANYL CITRATE/PF 100MCG/2 ML INJ ONE; -LIDOCAINE HCL 2% LOCAL INJ 5 ML SDV VIAL INJ ONE; -METOCLOPRAMIDE HCL 10 MG/2ML VIAL ONE; -MIDAZOLAM HCL 2 MG/2 ML VIAL ONE; -ONDANSETRON HCL INJ 2MG/ML 2ML 2 MG/ML VIAL ONE; -PROPOFOL IV EMULSION 10 MG/ML 20 ML VIAL ONE; -SEVOFLURANE INHAL SOLN 250 ML PEN BTL ONE
--- NOTE | 2019-08-31 10:50 | Diagnostic Imaging Report ---
EXAMINATION: CHEST 2 VIEWS INDICATION: Cough COMPARISON: None FINDINGS: LINES/TUBES:None LUNGS:The lungs are well-inflated. No focal consolidation or pulmonary edema. PLEURA:No pleural effusion or pneumothorax. MEDIASTINUM:The cardiomediastinal silhouette appears normal in size and shape. BONES/SOFT TISSUES:No acute osseous injury. Mild degenerative changes of the visualized spine. ABDOMEN:No free air under the diaphragm. IMPRESSION: No focal pneumonia or pulmonary edema. Signed by: Raphael White MD on 08/31/2019 10:47 AM
[2019-08-31] MEDS ORDERED: DEXAMETHASONE SOD PHOS 10 MG/1 ML VIAL IM ONE (13:00)
[2019-08-31] MEDS ORDERED: KETOROLAC TROMETHAMINE 10 MG TAB PO ONE (13:00)
[2019-08-31] MEDS ORDERED: CYCLOBENZAPRINE HCL 10 MG TAB PO ONE (13:00)
== END 2019-08-31 13:21 | disposition home or self-care (01) ==
LOC: ER 10:00
DX: R05 Cough (principal); J04.0 Acute laryngitis; J06.9 Acute upper respiratory infection, unspecified; I10 Essential (primary) hypertension
CPT/HCPCS: 71046; 87400; 99283; J1100